=== PATIENT | male | born 1955 | race Caucasian/White ===

== ENCOUNTER → 2022-08-09 07:45 | Outpatient (CLI) | payer MEDICARE, SELFPAY ==
--- NOTE | ~2022-08-09 | US_ITS ---
EXAMINATION: US abdomen limited DATE: 08/09/2022 08:11 INDICATION: Right upper quadrant pain TECHNIQUE: Multiple grayscale and Doppler ultrasound images of the abdomen were obtained. COMPARISON: None available FINDINGS: The head and body of the pancreas are normal. The pancreatic tail is obscured by bowel gas. The liver demonstrates increased echogenicity, heterogenous echotexture, and decreased through trans mission. No surface nodularity. Normal hepatopetal flow in the main portal vein. The gallbladder is n ormal with no abnormal wall thickening, pericholecystic fluid or stones. The normal common bile duct measures 5 mm. There was no sonographic Moe sign. IMPRESSION: 1. Diffuse hepatic steatosis. Reviewed, dictated and finalized at location []
== END ==
PROVIDERS: PCP Physician Assistant; Visit Provider Physician Assistant
DX: R10.11 Right upper quadrant pain (principal); K76.0 Fatty (change of) liver, not elsewhere classified
CPT/HCPCS: 76705

== ENCOUNTER 2022-10-29 10:06 | Outpatient (CLI) | payer MEDICARE, SELFPAY ==
[2022-10-29 19:19] LABS: Alanine Aminotransferase 68 U/L (6-50); Albumin Level 4.3 g/dL (3.5-5.1); Alkaline Phosphatase 83 U/L (38-126); Anion Gap 7 mmol/L (8-16); Aspartate Amino Transferase 49 U/L (17-59); Bilirubin,Total 0.6 mg/dL (0.2-1.3); Blood Urea Nitrogen 20 mg/dL (9-20); Calcium 9.4 mg/dL (8.4-10.2); Carbon Dioxide 33 mmol/L (22-30); Chloride 100 mmol/L (98-107); Cholesterol 211 mg/dL (0-200); Estimated Glomerular Filt Rate 50; Glucose 98 mg/dL (65-110); HDL Direct 34 mg/dL; Potassium 3.8 mmol/L (3.4-5.0); Sodium 140 mmol/L (137-145); Triglycerides 196 mg/dL (<150)
[2022-10-29 19:30] LABS: LDL Cholesterol Direct 133 mg/dL
[2022-10-29 20:15] LABS: Hepatitis C Virus Antibody Negative (Negative)
[2022-10-29 20:27] LABS: Hemoglobin A1C 4.9 % (<5.7)
[2022-11-02 17:25] LABS: Prostate Specific Antigen 5.7 ng/mL (< OR = 4.0)
== END 2022-10-29 10:07 | disposition home or self-care (01) ==
PROVIDERS: PCP Physician Assistant; Visit Provider Emergency Medicine
DX: R73.01 Impaired fasting glucose (principal); E78.5 Hyperlipidemia, unspecified; Z11.59 Encounter for screening for other viral diseases; Z12.5 Encounter for screening for malignant neoplasm of prostate
CPT/HCPCS: 36415; 80053; 80061; 83036; 84153; 86803; G0103

== ENCOUNTER 2022-11-15 09:21 | Outpatient (CLI) | payer MEDICARE, SELFPAY ==
--- NOTE | ~2022-11-15 | NM_ITS ---
EXAMINATION: NM hepatobiliary wo pharm DATE: 11/15/2022 12:26 INDICATION: Right upper quadrant abdominal pain. COMPARISON: Ultrasound 08/09/2022 TECHNIQUE: 5 mCi Tc-99m mebrofenin (Choletec) was administered intravenously. Scintigraphic images o f the abdomen were obtained for one hour. Then, the patient drank 8 oz Ensure, and imaging was contin ued for 60 minutes. FINDINGS: There is normal clearance of radiotracer from the blood pool. There is homogeneous tracer u ptake by the liver. Activity progresses to the bowel and gallbladder. Gallbladder ejection fraction (GBEF) was 42%. Note that with this technique, normal GBEF >= 33%. IMPRESSION: 1. Normal hepatobiliary scintigraphy. Reviewed, dictated and finalized at location E.
== END 2022-11-15 09:22 | disposition home or self-care (01) ==
PROVIDERS: PCP Emergency Medicine; Visit Provider Physician Assistant
DX: R10.11 Right upper quadrant pain (principal)
CPT/HCPCS: 78226; A9537

== ENCOUNTER 2022-11-18 06:51 | Outpatient (CLI) | payer MEDICARE, SELFPAY ==
--- NOTE | ~2022-11-18 | CT_ITS ---
. EXAMINATION: CT abdomen pelvis w con DATE: 11/18/2022 07:16 INDICATION: Right upper quadrant abdominal pain TECHNIQUE: Computed tomography (CT) of the abdomen and pelvis was performed with 100 CC Omnipaque 350 intravenous contrast. Automated exposure control and iterative reconstruction technique were employe d. Exam dose: 1551.48 mGy-cm total exam DLP. COMPARISON: 11/15/2022 radionuclide hepatobiliary scan, reported normal 08/09/2022 Limited abdominal ultrasound examination FINDINGS: The lung bases are clear. Normal heart size. No pericardial or pleural effusion. Diffuse hepatic steatosis. No hepatic space-occupying mass lesion. No bile duct dilatation. No pancre atic mass lesion, calcification or ductal dilatation. Normal splenic size. Normal morphology of the adrenal glands. Irregularity right renal outline likely due to chronic pyelonephritis. There are multiple right renal calculi including staghorn calculus at the upper pole and multiple additional mid and lower pole rig ht renal calculi. There is severe left hydronephrosis with prominent thinning of the cortex of the left kidney. There i s an obstructing approximately 11 x 17 mm calculus with attenuation of 1385 Hounsfield units at the l eft ureteropelvic junction. Approximately 4 additional nonobstructing left renal calculi. There is considerable streak artifact from bilateral total hip replacements which obscure portions of the pelvis including particularly the urinary bladder and prostate gland. There is extensive atherosclerotic calcification but normal caliber of the abdominal aorta and iliac arteries and femoral arteries. No intraperitoneal or retroperitoneal or pelvic mass lesion or adenopathy or ascites. No evidence of appendicitis. No bowel obstruction, bowel wall thickening, pneumatosis or intraperiton eal free air. Left fat-containing inguinal hernia. Small fat-containing umbilical hernia. Diffuse idiopathic skeletal hyperostosis of the thoracolumbar spine. Status post posterior and interbody surgical fusion at L4-S1. Status post bilateral total hip arthroplasty. IMPRESSION: Nonobstructing 11 x 17 mm left ureteropelvic junction calculus with severe left hydronep hrosis and prominent thinning of the left renal cortex Extensive bilateral nephrolithiasis Chronic right pyelonephritis Hepatic steatosis Reviewed, dictated and finalized at Location A. Reviewed, dictated and finalized at location L. IMPRESSION: Nonobstructing 11 x 17 mm left ureteropelvic junction calculus wit h severe left hydronephrosis and prominent thinning of the left renal cortex Extensive bilateral nephrolithiasis Chronic right pyelonephritis Hepatic steatosis
== END 2022-11-18 06:52 | disposition home or self-care (01) ==
LOC: ANHIMG 06:53
PROVIDERS: PCP Emergency Medicine; Visit Provider Physician Assistant
DX: N20.0 Calculus of kidney (principal); N10 Acute pyelonephritis; K76.0 Fatty (change of) liver, not elsewhere classified; N13.30 Unspecified hydronephrosis
CPT/HCPCS: 74177; Q9967

== ENCOUNTER 2022-11-30 00:44 | Day surgery (SDC) | payer MEDICARE, SELFPAY ==
[2022-11-18 12:42] VITALS: BMI 34.9
[2022-11-30 11:53] VITALS: BP 153/84; PULSE 68; RESP 17; TEMP 35.9; O2SAT 97; BMI 34.7
[2022-11-30] MEDS: LACTATED RINGERS 1,000 ML 150 ML IV CONT (12:03)
--- NOTE | 2022-11-30 12:38 | WPDANESEPPF ---
Anes - Initial Pre Proc Eval Procedure: Operation Date: 11/30/22 13:15 Proposed Procedures p Screening Colonoscopy - Christian Doe MD Date/Time: 11/30/22 12:38 Surgeon: Christian Doe MD Pre Op Diagnosis: neoplasm screening Patient Data Age: 66 Gender: M Height: 1.8 m Weight: 113 kg Last Vital Signs Temp 96.6 F L 11/30/22 11:53 Pulse 68 11/30/22 11:53 Resp 17 11/30/22 11:53 BP 153/84 H 11/30/22 11:53 Pulse Ox 97 11/30/22 11:53 O2 Del Method Room Air 11/30/22 11:53 Allergies Allergy/AdvReac Type Severity Reaction Status Date / Time No Known Allergies Allergy Unknown Verified 11/30/22 11:51 Home Medications Medication Instructions Recorded Confirmed Type tramadol 50 mg tablet 50 mg PO .q4 PRN pain #60 tabs 08/25/21 11/30/22 Rx krill oil 500 mg capsule 500 mg PO DAILY 12/01/21 11/30/22 History oypniefgushg-jdz-fhzxq acid-vit 1 tablet PO DAILY 12/01/21 11/30/22 History K-lycop 400 mcg-20 mcg-370 mcg tablet (Men's 50 Plus Multivitamin) allopurinol 300 mg tablet 300 mg PO DAILY #90 tabs 09/27/22 11/30/22 Rx amlodipine 10 mg tablet 10 mg PO DAILY 11/18/22 11/30/22 History aspirin 325 mg tablet 325 mg PO DAILY 11/18/22 11/30/22 History duloxetine 30 mg capsule,delayed 30 mg PO DAILY 11/18/22 11/30/22 History release metoprolol succinate 25 mg 25 mg PO DAILY 11/18/22 11/30/22 History tablet,extended release 24 hr triamterene 37.5 1 tablet PO DAILY 11/18/22 11/30/22 History mg-hydrochlorothiazide 25 mg tablet Patient hx anesthesia problems: none Family hx anesthesia problems: none Results Review: All pre-operative results and documents have been reviewed as part of the pre-operative evaluation. [facility] Past Medical History Medical History Obstructive sleep apnea (adult) (pediatric) Surgical History Surgical History H/O arthroscopy of knee H/O hernia repair H/O lumbosacral spine surgery History of appendectomy History of hip replacement S/P hip arthroscopy Family History Family History Mother Family history of cardiovascular disease Father Family history of malignant neoplasm of urinary bladder, Onset Age: 78 Social History Social History (Updated 10/29/22 @ 09:06 by Joe Vergara MA) Smoking status: Never smoker Alcohol intake: never Substance use type: does not use Lack of Transportation: No Lack of Food: Never True Current Housing: I Have Housing Concerned About Future Housing: No Difficulty Paying Gas/Electric Bills: No Difficulty Paying for Meds: No Currently Unemployed: No Education: Trade/Vocational Certificate Difficulty w/ Childcare or Family Care: No Living arrangements: with family Occupation/Education: retired Gender identity (if verbalized by the patient): Male Spiritual care concerns: No Agree to blood products: Yes Anes - Eval Final PreProcedure Day of Procedure 11/30/22 12:38 Patient weight: obese Heart: regular rate and rhythm Lungs: clear to auscultation Airway: Mallampati scale class II Neurological: alert and oriented Last oral intake: >/= 8 hours ASA classification: III Emergent: no Anesthetic plan: proceed Anesthesia type and monitoring: general GIVS and standard monitoring Results Review: All pre-operative results and documents have been reviewed as part of the pre-operative evaluation. Informed Consent: The patient's anesthetic plan and its attendant risks and benefits were discussed with the patient/family/POA. Questions were solicited and answers provided to the satisfaction of the patient/family/POA.
--- NOTE | 2022-11-30 12:57 | PM.HPGS ---
History of Present Illness History of Present Illness Consent: Risks, benefits, and alternatives have been discussed and questions answered. Patient agrees to proceed with procedure. Chief complaint: neoplasm screening Narrative: Leonel Magdaleno is a 66 year old male here for first screening colonoscopy Review of Systems Constitutional: Constitutional: Denies headache(s) and Denies weakness Eyes: Eyes: Denies blurry vision ENT: Reports Normal hearing present, Denies headache(s) and Denies neck pain Cardiovascular: Cardiovascular: Denies chest pain and Denies dyspnea Respiratory: Respiratory: Denies dyspnea Gastrointestinal: Gastrointestinal: Reports no additional gastrointestinal complaints Genitourinary: Genitourinary: Denies dysuria Musculoskeletal: Musculoskeletal: Denies neck pain Integumentary/Breasts: Skin/Breast: Denies dry skin Neurologic: Reports Normal hearing present, Denies headache(s) and Denies weakness Psychiatric: Psychiatric: Denies anxiety Endocrine: Endocrine: Denies change in body appearance Hematologic/Lymphatic: Hematologic/Lymphatic: Denies easy bleeding Allergic/Immunologic: Allergic/Immunologic: Denies urticaria PMFSH Past Medical History Medical History Obstructive sleep apnea (adult) (pediatric) Surgical History Surgical History H/O arthroscopy of knee H/O hernia repair H/O lumbosacral spine surgery History of appendectomy History of hip replacement S/P hip arthroscopy Family History Family History Mother Family history of cardiovascular disease Father Family history of malignant neoplasm of urinary bladder, Onset Age: 78 Social History Social History (Updated 10/29/22 @ 09:06 by Joe Vergara MA) Smoking status: Never smoker Alcohol intake: never Substance use type: does not use Lack of Transportation: No Lack of Food: Never True Current Housing: I Have Housing Concerned About Future Housing: No Difficulty Paying Gas/Electric Bills: No Difficulty Paying for Meds: No Currently Unemployed: No Education: Trade/Vocational Certificate Difficulty w/ Childcare or Family Care: No Living arrangements: with family Occupation/Education: retired Gender identity (if verbalized by the patient): Male Spiritual care concerns: No Agree to blood products: Yes Meds Home Medications and Allergies Home Medications Medication Instructions Recorded Confirmed Type tramadol 50 mg tablet 50 mg PO .q4 PRN pain #60 tabs 08/25/21 11/30/22 Rx krill oil 500 mg capsule 500 mg PO DAILY 12/01/21 11/30/22 History mjrwdbbpwlyy-dzk-umxzn acid-vit 1 tablet PO DAILY 12/01/21 11/30/22 History K-lycop 400 mcg-20 mcg-370 mcg tablet (Men's 50 Plus Multivitamin) allopurinol 300 mg tablet 300 mg PO DAILY #90 tabs 09/27/22 11/30/22 Rx amlodipine 10 mg tablet 10 mg PO DAILY 11/18/22 11/30/22 History aspirin 325 mg tablet 325 mg PO DAILY 11/18/22 11/30/22 History duloxetine 30 mg capsule,delayed 30 mg PO DAILY 11/18/22 11/30/22 History release metoprolol succinate 25 mg 25 mg PO DAILY 11/18/22 11/30/22 History tablet,extended release 24 hr triamterene 37.5 1 tablet PO DAILY 11/18/22 11/30/22 History mg-hydrochlorothiazide 25 mg tablet Allergies Allergy/AdvReac Type Severity Reaction Status Date / Time No Known Allergies Allergy Unknown Verified 11/30/22 11:51 Vital Signs Vital Signs - 24 hr 11/30/22 11:53 Temperature 96.6 F L Pulse Rate 68 Respiratory Rate 17 Blood Pressure 153/84 H Pulse Oximetry 97 Oxygen Delivery Room Air Exam Const: General: comfortable and no acute distress HENMT: Face/Nose/Sinus: Normal nares present Eyes: General: appearance normal, both eyes and all related structures Neck: Neck: no JVD Resp:
[2022-11-30 13:19] VITALS: BP 106/66; PULSE 67; RESP 17; O2SAT 95
[2022-11-30 13:29] VITALS: BP 106/67; PULSE 68; RESP 16; O2SAT 95
[2022-11-30 13:39] VITALS: BP 117/76; PULSE 68; RESP 16; O2SAT 95
== END 2022-11-30 13:40 | disposition home or self-care (01) ==
PROVIDERS: PCP Emergency Medicine; Visit Provider Internal Medicine Gastroenterology
PROC: 0DJD8ZZ Inspection of Lower Intestinal Tract, Via Natural or Artificial Opening Endoscopic (ICD-10-PCS; CPT 45378; principal; 2022-11-30 13:15)
DX: Z12.11 Encounter for screening for malignant neoplasm of colon (principal); D12.3 Benign neoplasm of transverse colon; D12.0 Benign neoplasm of cecum; K63.5 Polyp of colon; K64.8 Other hemorrhoids; G47.33 Obstructive sleep apnea (adult) (pediatric); Z79.82 Long term (current) use of aspirin; E66.9 Obesity, unspecified; Z68.34 Body mass index [BMI] 34.0-34.9, adult
CPT/HCPCS: 45385; 45380; 88305; J2704; J7120

== ENCOUNTER 2022-12-24 09:18 | Outpatient (CLI) | payer MEDICARE, SELFPAY ==
--- NOTE | 2022-12-24 09:26 | ECG_ITS ---
Measurements Intervals [place] Rate: 60 P: 53 NE: 215 QRS: -1 QRSD: 98 T: 2 QT: 426 QTc: 427 Interpretive Statements SINUS RHYTHM WITH FIRST DEGREE AV BLOCK INFERIOR INFARCT, AGE INDETERMINATE BORDERLINE ST-T WAVE ABNORMALITY- ANTEROLAT/HIGH LAT LEADS BASELINE ARTIFACT- I, III, AVL ABNORMAL ECG NO PREVIOUS ECG AVAILABLE FOR COMPARISON Electronically Signed On 12-24-2022 10:52:00 REPLENISHMENT BUYER by Epi Duff D.O.
== END 2022-12-24 09:19 | disposition home or self-care (01) ==
LOC: ANHSURGERY 09:22
PROVIDERS: PCP Emergency Medicine; Visit Provider Urology
DX: Z01.818 Encounter for other preprocedural examination (principal); I10 Essential (primary) hypertension; I44.0 Atrioventricular block, first degree; R94.31 Abnormal electrocardiogram [ECG] [EKG]
CPT/HCPCS: 93005

== ENCOUNTER 2022-12-28 01:49 | Day surgery (SDC) | payer MEDICARE, SELFPAY ==
--- NOTE | 2022-12-23 13:44 | PC.NURSE ---
Report to the Outpatient Waiting Room, entrance under the green pavilion located off [facility], at time __1200 on date ____12/28/22___. Planned Procedure Time: _1400 . Time changes happen often and if your time is changed the preop area will call you the afternoon before. - You and your visitor will be asked to self-screen and do not enter if you have any COVID symptoms. - A mask is optional within the hospital at this time. Patients may have clear liquids (water, carbonated beverages, clear teas, apple juice) until 3 hours prior to surgery with a maximum of 20 ounces. - No food from midnight until time of surgery - Infants may have breast milk until 4 hours before surgery, formula 6 hours prior to surgery. - Children will be allowed to drink immediately following surgery. If applicable, please bring a bottle or sippy cup to assist with drinking. Juice, water, soda, and popsicles are readily available. For infants on formula, please bring formula the day of surgery. Pacifiers are allowed. Take the following medications with a SIP of water the morning of surgery: __AMLODIPINE,METOPROLOL DO NOT STOP ANY OF YOUR OTHER PRESCRIPTION MEDICATIONS PRIOR TO SURGERY ?EXCEPT THE FOLLOWING Medications to discontinue per physician ____PT STATES HOLD ASPIRIN AND ALL VITAMINS AND SUPPLEMENTS 7 DAYS PRE OP PER DR DELGAOD.LAST DOSE 12/20/22 Please no make-up, nail iraqi, hairspray, perfume, deodorant, or body powder the day of surgery. No jewelry (including any body piercings) or valuables the day of surgery, leave them at home. Please take a shower or bath the night before, or the morning of, surgery with an antibacterial soap. Wear comfortable, loose fitting clothing. Children are encouraged to wear pajamas. - Jewelry must be removed prior to entering the operating room. Rings and piercings that are not removed may be cut off. - The hospital will not accept responsibility for valuables. - Please leave all valuables, including medications, at home the day of surgery. If you are going home after surgery, a licensed vacuum truck driver must drive you home. - NO public transportation without another adult if you receive anesthesia. - We recommend that an adult stay with you for 24 hours following discharge. - We also recommend that you do not drive, make important decision, drink alcoholic beverages, or take any drugs that were not prescribed by your health care provider for at least 24 hours after your discharge time. For Pediatric surgeries, we recommend two adults accompany the child home. Follow any additional instructions given to you from your surgeon. If you or anyone in your household have experienced Covid symptoms in the past week, please notify your surgeon or the nurse liaison at the phone number below for possible testing. Telephone instructions given to _PATIENT and asked if any additional questions and then verbalized understanding. Patient advised to call surgeon office or pre surgery nurse liaison [phone] if any additional questions.
[2022-12-23 13:52] VITALS: BMI 34.9
[2022-12-28] VITALS (8 sets, daily range): BP systolic 117–152; BP diastolic 63–84; PULSE 65–78; RESP 12–18; TEMP 36.2–36.7; O2SAT 97–100
--- NOTE | ~2022-12-28 | XR_ITS ---
XR abdomen/kub 1V DATE: 12/28/2022 13:21 INDICATION: Obstructing left kidney stone TECHNIQUE: 3 portable AP views COMPARISON: 11/18/2022 CT abdomen pelvis FINDINGS: Approximately 9 x 16 mm calcified calculus overlies the left ureteropelvic junction approxi mately. Bilateral renal calcified calculi including staghorn calculus of the upper pole of the right kidney. Status post posterior and interbody surgical fusion at L4-S1. Status post bilateral total hip arthroplasty. No evidence of bowel obstruction. The lung bases appear clear. IMPRESSION: Large left ureteropelvic junction calcified calculus Bilateral nephrolithiasis Reviewed, dictated and finalized at Location A. Reviewed, dictated and finalized at location L. SPRAYER
--- NOTE | ~2022-12-28 | XR_ITS ---
EXAMINATION: XR retrograde pyelo w/stent LT DATE: 12/28/2022 15:44 INDICATION: Left ureteral stone. TECHNIQUE: 5 intraoperative fluoroscopic views of the abdomen and pelvis were obtained. I was not pre sent. Fluoroscopy exposure time was 38 seconds. COMPARISON: CT abdomen and pelvis 11/18/2022 FINDINGS: There are changes of anterior posterior fusion procedures in lumbar spine. There is a 16 mm stone in proximal left ureter. There is a 7 mm stone in left kidney. There is a phlebolith in left p jourdan. On the final images, the left ureteral stone is no longer present. There is a left internal ur eteral stent in expected position. IMPRESSION: 1. Stones in the left ureter and left kidney. 2. Left internal ureteral stent in expected position. Reviewed, dictated and finalized at location A. KROOM CHIEF
[2022-12-28] MEDS: LACTATED RINGERS 1,000 ML 30 ML IV CONT ×2 (12:45→15:46)
--- NOTE | 2022-12-28 12:57 | WPDHPUPDATE1 ---
History and Physical Update Update Date/Time: 12/28/22 12:57 History and Physical has been reviewed, including an updated exam of the patient. There are NO changes in the patient's condition. Risks, benefits, and alternatives have been discussed and questions answered. Patient agrees to proceed with procedure. Proceed with cysto, left rpg, left ureteroscopy, laser, stone extraction, stent placement, possible right rpg, ureteroscopy, stent.
--- NOTE | 2022-12-28 13:13 | WPDANESEPPF ---
Anes - Initial Pre Proc Eval Procedure: Operation Date: 12/28/22 14:00 Proposed Procedures p Cystoscopy, Left Ureteroscopy, Left Retrograde Pyelogram, Left Stone Extraction, Possible Left Stent Placement, Possible Holmium Laser - Yao Meehan MD Date/Time: 12/28/22 13:13 Surgeon: Yao Meehan MD Pre Op Diagnosis: left kidney stones Patient Data Age: 67 Gender: M Height: 1.8 m Weight: 113.45 kg Allergies Allergy/AdvReac Type Severity Reaction Status Date / Time No Known Allergies Allergy Unknown Verified 12/23/22 13:34 Home Medications Medication Instructions Recorded Confirmed Type krill oil 500 mg capsule 500 mg PO DAILY 12/01/21 12/23/22 History ggokajyvtqty-rtv-mwkke acid-vit 1 tablet PO DAILY 12/01/21 12/23/22 History K-lycop 400 mcg-20 mcg-370 mcg tablet (Men's 50 Plus Multivitamin) allopurinol 300 mg tablet 300 mg PO DAILY #90 tabs 09/27/22 12/23/22 Rx amlodipine 10 mg tablet 10 mg PO DAILY 11/18/22 12/23/22 History aspirin 325 mg tablet 325 mg PO DAILY 11/18/22 12/23/22 History duloxetine 30 mg capsule,delayed 30 mg PO QPM NEUROPATHY 11/18/22 12/23/22 History release metoprolol succinate 25 mg 25 mg PO DAILY 11/18/22 12/23/22 History tablet,extended release 24 hr triamterene 37.5 1 tablet PO DAILY 11/18/22 12/23/22 History mg-hydrochlorothiazide 25 mg tablet tramadol 50 mg tablet 50 mg PO .q4 PRN pain #60 tabs 12/23/22 12/23/22 Rx Patient hx anesthesia problems: none Family hx anesthesia problems: none Results Review: All pre-operative results and documents have been reviewed as part of the pre-operative evaluation. [facility] Past Medical History Medical History Obstructive sleep apnea (adult) (pediatric) Surgical History Surgical History H/O arthroscopy of knee H/O hernia repair H/O lumbosacral spine surgery History of appendectomy History of hip replacement S/P hip arthroscopy Family History Family History Mother Family history of cardiovascular disease Father Family history of malignant neoplasm of urinary bladder, Onset Age: 78 Social History Social History Smoking status: Never smoker Alcohol intake: never Substance use type: does not use Lack of Transportation: No Lack of Food: Never True Current Housing: I Have Housing Concerned About Future Housing: No Difficulty Paying Gas/Electric Bills: No Difficulty Paying for Meds: No Currently Unemployed: No Education: Trade/Vocational Certificate Difficulty w/ Childcare or Family Care: No Living arrangements: with family Occupation/Education: retired Gender identity (if verbalized by the patient): Male Spiritual care concerns: No Agree to blood products: Yes Anes - Eval Final PreProcedure Day of Procedure 12/28/22 13:13 Patient weight: obese Heart: regular rate and rhythm Lungs: clear to auscultation Airway: Mallampati scale class II Neurological: alert and oriented Last oral intake: >/= 8 hours ASA classification: III Emergent: no Anesthetic plan: proceed Anesthesia type and monitoring: general LMA Results Review: All pre-operative results and documents have been reviewed as part of the pre-operative evaluation. Informed Consent: The patient's anesthetic plan and its attendant risks and benefits were discussed with the patient/family/POA. Questions were solicited and answers provided to the satisfaction of the patient/family/POA.
[2022-12-28] MEDS: LIDOCAINE HCL 2% GEL UROJET 10 ML PKG MUCOUS MEM (14:39)
--- NOTE | 2022-12-28 15:42 | P.OP_ITS ---
Procedure Note - Detailed Date of Procedure 12/28/22 Pre-op Diagnosis 17 mm left UPJ stone with hydronephrosis, right staghorn stone Post-op Diagnosis Same Procedure Performed Cystoscopy, bilateral retrograde pyelograms, left ureteroscopy with holmium laser, left ureteral stent placement 6 [place] contour Surgeon Yao Meehan MD Anesthesia General Description of Procedure Patient was taken to the operative suite correctly identified. Once anesthesia was obtained was placed in dorsal lithotomy position and prepped draped usual sterile fashion. Twenty-two [place] scope was inserted the bladder in direct vision. There were no tumors noted. The left ureteral orifice was cannulated with a ureteral catheter and a pyelogram was performed. Contrast made its way into the kidney. A Sensor wire would not advance past the stone. At this point we placed a ureteral access sheath. Mini flexible ureteral scope was inserted up to the stone. It is very large and obstructs the entire ureter. Using a holmium laser fiber we fragmented the stone into smaller pieces along with dust. We were able to finally get into the kidney. There were some fragments noted in the kidney which we dusted. Patient was having a little bit of ectopy and this was decided best to terminate at this point. Pyelogram was performed again to confirm placement the stent. Six [place] contour stent was then placed with the proximal end coiled in the left renal pelvis and the distal in the bladder. A right retrograde pyelogram was then performed there was no evidence of obstruction or ureteral filling defects. Bladder was drained. 2% viscous lidocaine was inserted into the urethra patient is taken recovery stable condition. We will plan on outpatient renal scan to determine function of the left kidney. In addition will make a decision regarding lithotripsy of the right renal stone with stent placement versus PCNL versus ureteroscopy with laser. This completes dictation on this patient. Please send a copy this op note to my office. Estimated Blood Loss 0 Drains Yes (Six [place] contour) Packing No Pathology Yes Complications No immediate complications Condition Stable Disposition PACU
== END 2022-12-28 17:15 | disposition home or self-care (01) ==
PROVIDERS: PCP Emergency Medicine; Visit Provider Urology
PROC: (CPT 52352; principal; 2022-12-28 14:00)
DX: N13.2 Hydronephrosis with renal and ureteral calculous obstruction (principal); G47.33 Obstructive sleep apnea (adult) (pediatric); Z79.82 Long term (current) use of aspirin; E66.9 Obesity, unspecified; Z68.34 Body mass index [BMI] 34.0-34.9, adult
CPT/HCPCS: 52356; 74018; 74420; 82365; 88300; 93005; C1758; C1769; C1894; C2617; J0690; J1100; J2250; J2405; J2704; J3010; J7120; Q9966

== ENCOUNTER 2023-01-20 11:51 | Outpatient (CLI) | payer MEDICARE, SELFPAY ==
--- NOTE | ~2023-01-20 | NM_ITS ---
EXAMINATION: FRANCESCO cramer renal scan DATE: 01/20/2023 12:58 INDICATION: Hydronephrosis TECHNIQUE: 8.6 mCi Tc-99m MAG3 was administered IV. 40 mg furosemide was administered IV immediately afterward. The patient was scanned in the supine position. A posterior abdominal radionuclide angiog pari was obtained. A subsequent time course of static images of the kidneys, ureters, and bladder was obtained. COMPARISON: None FINDINGS: The posterior abdominal radionuclide angiogram and sequential static images show normal size and posi tion of the kidneys with normal morphology on the right and with prominent central photopenic on the early phase of imaging of the left kidney which gradually fills in on delayed imaging consistent with persistent left hydronephrosis. Peak renal parenchymal uptake was 3 min in left kidney and 12 min in right kidney (normal peak 3-5 minutes). The relative early renal uptake was 28% on the left and 72% on the right (<40% is abnormal). No abnormalities of the ureters or bladder are seen. T1/2 for clearance of activity from the left kidney and proximal collecting system was >30 minutes. T1/2 for clearance of activity from the right kidney and proximal collecting system was 15 minutes. Notes on interpretation: T1/2 <10 minutes is normal, 10-15 minutes is low grade obstruction of questi onable clinical significance, 15-20 minutes is partial obstruction that is likely clinically signific ant, >20 minutes is high grade obstruction. Note that false positives may be seen with supine positio jose cruz, dehydration, severely dilated nonobstructed kidney, atonic collecting system, poor renal functi on, and chronic furosemide use. IMPRESSION: 1. Left hydronephrosis with significant delayed activity excretion consistent with high-grade obstru ction. 2. Significant decreased left renal function which contributes only 28% total renal function which li jerry sequela of chronic hydronephrosis with asymmetric mild left renal cortical atrophy evident on e CT from 2 months prior. 2. Mild delayed activity clearance from the right kidney which could be due to low-grade obstruction of doubtful clinical significance however there is no evident hydronephrosis and this more likely re lated to either poor renal function, compensatory excretion resulting from the contralateral hydronep hrosis, supine positioning, dehydration or some combination thereof. Reviewed, dictated and finalized at location A. CTOR PROCESS IMPROVEMENT IMPRESSION: 1. Left hydronephrosis with significant delayed activity excretion consistent with high-grade obstruction. 2. Significant decreased left renal function which contributes only 28% total r enal function which likely sequela of chronic hydronephrosis with asymmetric mi ld left renal cortical atrophy evident on the CT from 2 months prior. 2. Mild delayed activity clearance from the right kidney which could be due to low-grade obstruction of doubtful clinical significance however there is no ev ident hydronephrosis and this more likely related to either poor renal function , compensatory excretion resulting from the contralateral hydronephrosis, supin e positioning, dehydration or some combination thereof.
--- NOTE | ~2023-01-20 | XR_ITS ---
XR abdomen/kub 1V 01/20/2023 12:58 INDICATION: Renal stone TECHNIQUE: KUB COMPARISON: 12/28/2022 FINDINGS: Bowel gas pattern is normal. There are multiple bilateral renal stones. There is a left int ernal ureteral stent in expected position. There are bilateral hip arthroplasties. There is no eviden ce of free air, mass, organomegaly, ascites or obstruction. No abnormal calculi are seen. The bones appear intact. There is surgical fusion at L4 S1. IMPRESSION: 1: Bilateral nephrolithiasis. Left internal ureteral stent in expected position. Reviewed, dictated and finalized at location L. MACHINERY INSPECTOR IMPRESSION: 1: Bilateral nephrolithiasis. Left internal ureteral stent in expected positio n.
== END 2023-01-20 11:52 | disposition home or self-care (01) ==
PROVIDERS: PCP Emergency Medicine; Visit Provider Urology
DX: N13.30 Unspecified hydronephrosis (principal); N20.0 Calculus of kidney; R94.4 Abnormal results of kidney function studies
CPT/HCPCS: 74018; 78708; A9562

== ENCOUNTER 2023-02-09 12:04 | Outpatient (CLI) | payer MEDICARE, SELFPAY ==
[2023-02-09 12:56] LABS: Prothrombin Time 13.2 Seconds (11.1-14.7)
[2023-02-09 12:57] LABS: Partial Thromboplastin Time 25.7 SECONDS (22.3-36.8)
[2023-02-09 13:07] LABS: Anion Gap 8 mmol/L (8-16); Blood Urea Nitrogen 18 mg/dL (9-20); Calcium 9.2 mg/dL (8.4-10.2); Carbon Dioxide 30 mmol/L (22-30); Chloride 104 mmol/L (98-107); Estimated Glomerular Filt Rate 60; Glucose 129 mg/dL (65-110); Potassium 3.5 mmol/L (3.4-5.0); Sodium 142 mmol/L (137-145)
== END 2023-02-09 12:05 | disposition home or self-care (01) ==
LOC: ANHSURGERY 12:09
PROVIDERS: Anesthesiology; PCP Emergency Medicine; Visit Provider Urology
DX: Z01.818 Encounter for other preprocedural examination (principal); I10 Essential (primary) hypertension; N20.0 Calculus of kidney
CPT/HCPCS: 36415; 80048; 85610; 85730; 87086

== ENCOUNTER 2023-02-18 00:30 | Day surgery (SDC) | payer MEDICARE, SELFPAY ==
--- NOTE | 2023-02-08 08:42 | PC.NURSE ---
Report to the Outpatient Waiting Room, entrance under the green pavilion located off [facility], at time __0600 on date __02/18/23 . Planned Procedure Time: __0730 . Time changes happen often and if your time is changed the preop area will call you the afternoon before. - You and your visitor will be asked to self-screen and do not enter if you have any COVID symptoms. - A mask is optional within the hospital at this time. Patients may have clear liquids (water, carbonated beverages, clear teas, apple juice) until 3 hours prior to surgery( 4:30AM) with a maximum of 20 ounces. - No food from midnight until time of surgery - Infants may have breast milk until 4 hours before surgery, formula 6 hours prior to surgery. - Children will be allowed to drink immediately following surgery. If applicable, please bring a bottle or sippy cup to assist with drinking. Juice, water, soda, and popsicles are readily available. For infants on formula, please bring formula the day of surgery. Pacifiers are allowed. Take the following medications with a SIP of water the morning of surgery: ___AMLODIPINE,METOPROLOL DO NOT STOP ANY OF YOUR OTHER PRESCRIPTION MEDICATIONS PRIOR TO SURGERY ?EXCEPT THE FOLLOWING Medications to discontinue per physician ___HOLD ASPIRIN 7 DAYS PRE OP PER DR DELGADO.LAST DOSE 02/10/23 HOLD ALL VITAMINS AND SUPPLEMENTS 3 DAYS PRE OP.LAST DOSE 02/14/23 Please no make-up, nail khmer, hairspray, perfume, deodorant, or body powder the day of surgery. No jewelry (including any body piercings) or valuables the day of surgery, leave them at home. Please take a shower or bath the night before, or the morning of, surgery with an antibacterial soap. Wear comfortable, loose fitting clothing. Children are encouraged to wear pajamas. - Jewelry must be removed prior to entering the operating room. Rings and piercings that are not removed may be cut off. - The hospital will not accept responsibility for valuables. - Please leave all valuables, including medications, at home the day of surgery. If you are going home after surgery, a licensed tractor driver teamster must drive you home. - NO public transportation without another adult if you receive anesthesia. - We recommend that an adult stay with you for 24 hours following discharge. - We also recommend that you do not drive, make important decision, drink alcoholic beverages, or take any drugs that were not prescribed by your health care provider for at least 24 hours after your discharge time. For Pediatric surgeries, we recommend two adults accompany the child home. Follow any additional instructions given to you from your surgeon. If you or anyone in your household have experienced Covid symptoms in the past week, please notify your surgeon or the nurse liaison at the phone number below for possible testing. Telephone instructions given to ___PATIENT and asked if any additional questions and then verbalized understanding. Patient advised to call surgeon office or pre surgery nurse liaison [phone] if any additional questions.
[2023-02-08 08:50] VITALS: BMI 34.9
--- NOTE | 2023-02-17 14:33 | WPDANESEPPF ---
Anes - Initial Pre Proc Eval Procedure: Operation Date: 02/18/23 07:30 Proposed Procedures p Right Renal Extracorporeal Shock Wave Lithotripsy, - Yao Meehan MD s Cystoscopy, Left Stent Removal, Right Retrograde Pyelogram, Right Stent Placement - Yao Meehan MD Date/Time: 02/17/23 14:33 Surgeon: Yao Meehan MD Pre Op Diagnosis: right renal stones, stu ureteral stents Patient Data Age: 67 Gender: M Height: 1.8 m Weight: 113.85 kg Allergies Allergy/AdvReac Type Severity Reaction Status Date / Time No Known Allergies Allergy Unknown Verified 02/18/23 07:11 Home Medications Medication Instructions Recorded Confirmed Type krill oil 500 mg capsule 500 mg PO DAILY 12/01/21 02/08/23 History yvosbtbunnrw-vtl-hgtqb acid-vit 1 tablet PO DAILY 12/01/21 02/08/23 History K-lycop 400 mcg-20 mcg-370 mcg tablet (Men's 50 Plus Multivitamin) aspirin 325 mg tablet 325 mg PO DAILY 11/18/22 02/08/23 History duloxetine 30 mg capsule,delayed 30 mg PO QPM NEUROPATHY 11/18/22 02/08/23 History release tramadol 50 mg tablet 50 mg PO .q4 PRN pain #60 tabs 12/23/22 02/08/23 Rx allopurinol 300 mg tablet 300 mg PO DAILY #100 tabs 12/30/22 02/08/23 Rx amlodipine 10 mg tablet 10 mg PO DAILY #100 tabs 12/30/22 02/08/23 Rx metoprolol succinate 25 mg 25 mg PO DAILY #100 tabs 12/30/22 02/08/23 Rx tablet,extended release 24 hr triamterene 37.5 1 tablet PO DAILY #100 tabs 12/30/22 02/08/23 Rx mg-hydrochlorothiazide 25 mg tablet Patient hx anesthesia problems: none Family hx anesthesia problems: none Results Review: All pre-operative results and documents have been reviewed as part of the pre-operative evaluation. [facility] Past Medical History Medical History Obstructive sleep apnea (adult) (pediatric) Surgical History Surgical History H/O arthroscopy of knee H/O hernia repair H/O lumbosacral spine surgery History of appendectomy History of hip replacement S/P hip arthroscopy Family History Family History Mother Family history of cardiovascular disease Father Family history of malignant neoplasm of urinary bladder, Onset Age: 78 Social History Social History Smoking status: Never smoker Alcohol intake: never Substance use type: does not use Lack of Transportation: No Lack of Food: Never True Current Housing: I Have Housing Concerned About Future Housing: No Difficulty Paying Gas/Electric Bills: No Difficulty Paying for Meds: No Currently Unemployed: No Education: Trade/Vocational Certificate Difficulty w/ Childcare or Family Care: No Living arrangements: with family Occupation/Education: retired Gender identity (if verbalized by the patient): Male Spiritual care concerns: No Agree to blood products: Yes Anes - Eval Final PreProcedure Day of Procedure 02/17/23 14:33 Patient weight: obese Heart: regular rate and rhythm Lungs: clear to auscultation Airway: Mallampati scale class III (poor dentition; all upper chips, noting loose) Neurological: alert and oriented Last oral intake: >/= 8 hours ASA classification: III Emergent: no Anesthetic plan: proceed Anesthesia type and monitoring: general LMA and standard monitoring Results Review: All pre-operative results and documents have been reviewed as part of the pre-operative evaluation. Informed Consent: The patient's anesthetic plan and its attendant risks and benefits were discussed with the patient/family/POA. Questions were solicited and answers provided to the satisfaction of the patient/family/POA.
[2023-02-18] VITALS (14 sets, daily range): BP systolic 136–181; BP diastolic 75–109; PULSE 57–91; RESP 12–18; TEMP 36.2–36.6; O2SAT 96–100
--- NOTE | ~2023-02-18 | XR_ITS ---
Supine and upright views of the abdomen Clinical history: Renal stone COMPARISON: 01/20/2023 Findings: Bowel gas pattern is nonspecific. No evidence for obstruction or free air. Multiple right r enal stones are unchanged. Left ureteral stent is in place, with stable left renal stones as well. Bi lateral hip arthroplasties and lumbosacral spinal fixation hardware present. Impression: Numerous bilateral renal stones, essentially stable from prior exam. Left ureteral stent. Reviewed, dictated and finalized at location . RATORY CHEMICAL ASSISTANT Impression: Numerous bilateral renal stones, essentially stable from prior exam. Left ureteral stent.
--- NOTE | ~2023-02-18 | XR_ITS ---
EXAMINATION: XR abdomen/kub 1V INDICATION: Abdominal pain post lithotripsy TECHNIQUE: Supine views of the abdomen were obtained on 2 radiographs. COMPARISON: 0624 hours FINDINGS: There has been interval placement of a right internal ureteral stent in expected position. There is slight interval decrease in density of a stone in the right kidney upper pole, likely due to interval lithotripsy. There appear to be stone fragments in the right renal pelvis. No definite ston e fragments are identified along the course of the right internal ureteral stent although sensitivity is limited by portable technique. A left internal ureteral stent is in expected position. Stones adj acent to the coiled portion of the stent and in the left kidney lower pole appear to have decreased i n density, also possibly due to lithotripsy. No definite stone fragments are identified along the cou rse of the left internal ureteral stent. IMPRESSION: 1. Insertion of right internal ureteral stent in expected position. 2. Apparent decrease in density of bilateral kidney stones, consistent with lithotripsy. Reviewed, dictated and finalized at location A. GING CAR OPERATOR IMPRESSION: 1. Insertion of right internal ureteral stent in expected position. 2. Apparent decrease in density of bilateral kidney stones, consistent with lit hotripsy.
[2023-02-18] MEDS: LACTATED RINGERS 1,000 ML 30 ML IV CONT ×2 (07:00→10:29)
--- NOTE | 2023-02-18 07:26 | WPDHPUPDATE1 ---
History and Physical Update Update Date/Time: 02/18/23 07:26 History and Physical has been reviewed, including an updated exam of the patient. There are NO changes in the patient's condition. Risks, benefits, and alternatives have been discussed and questions answered. Patient agrees to proceed with procedure. Proceed with right renal eswl, cystoscopy, left stent removal, right rpg, right stent placement.
[2023-02-18] MEDS: ceFAZolin 2 GM/D5W 50 ML 2 GM/50 ML BAG IVPB (07:35)
[2023-02-18] MEDS: LIDOCAINE HCL 2% GEL UROJET 10 ML PKG MUCOUS MEM (08:02)
--- NOTE | 2023-02-18 08:40 | W.PM.PROC2 ---
Procedure Note - Detailed Date of Procedure 02/18/23 Pre-op Diagnosis right renal stones, stu ureteral stents Post-op Diagnosis Same Procedure Performed Cystoscopy, right retrograde pyelogram, right renal lithotripsy Surgeon Yao Meehan MD Anesthesia General Description of Procedure Patient was taken to the operative suite correctly identified. Once anesthesia was obtained fluoroscopy was performed. It was noted that the left renal fragment was still present. As such I did not remove the left stent. For he was prepped and draped usual sterile fashion. Flexible scope was inserted into the bladder. The right ureteral orifice was cannulated with guidewire. Ureteral stent was placed after a pyelogram was performed to confirm placement. His stone is in an upper pole calyx. Two thousand five hundred shocks were given to the stone. Patient tolerated procedure well without any complications and was taken recovery stable condition. He will follow-up in 7-10 days with KUB. If there was minimal fragmentation on the right side he would most likely require a PCNL. Will make a decision regarding the left renal fragment on his follow-up KUB. This completes dictation. Please send a copy of this op note to my office. Drains Yes Packing No Pathology None sent Complications No immediate complications Condition Stable Disposition PACU
[2023-02-18] MEDS: ONDANSETRON INJ 4 MG/2 ML VIAL IV PUSH (09:35)
--- NOTE | 2023-02-18 09:44 | SUR.PHASEII ---
FEELING LIGHTED/NAUSEOUS; HOB LOWERED, COOL CLOTH TO FOREHEAD; ZOFRAN GIVEN.
[2023-02-18] MEDS: oxyBUTYnin CHLORIDE 5 MG TABLET PO (09:57)
[2023-02-18] MEDS: fentaNYL CITRATE INJ (*CRX) 100 MCG/2 ML VIAL 25 MCG IV PUSH ×8 (10:01→11:05)
--- NOTE | 2023-02-18 10:01 | SUR.PHASEII ---
PT HAS SEVERE RIGHT LOWER ABDOMINAL PAIN; PATIENT IS COMPRESSING AREA; HAS URGENCY BUT CAN'T URINATE. DR. DELGADO NOTIFIED; ORDERED DITROPAN. NAUSEA RESOLVED NOW; GIVING FENTANYL FOR PAIN.
--- NOTE | 2023-02-18 10:30 | SUR.PHASEII ---
BLADDER SCAN SHOWED [address] DELGADO NOTIFIED OF BLADDER SCAN RESULTS AND SEVERE PERSISTENT RIGHT LOWER ABDOMINAL PAIN10/24. ORDERED KUB.
--- NOTE | 2023-02-18 10:54 | SUR.PHASEII ---
PORTABLE KUB DONE.
[2023-02-18] MEDS: oxyCODONE HCL (*CRX) 5 MG TAB IR PO (11:17)
[2023-02-18] MEDS: HYDROmorphone HCL INJ (*CRX) 1 MG/ML SYR 0.5 MG IV PUSH (11:21)
--- NOTE | 2023-02-18 11:30 | SUR.PHASEII ---
RADIOLOGY CALLED RE: NIYA REPORT; THEY WILL ASK FOR IT TO BE READ.
--- NOTE | 2023-02-18 12:41 | SUR.PHASEII ---
DR. DELGADO NOTIFIED RE: PERSISTENT PAIN AND KUB RESULTS. DR. DELGADO ORDERED TO REPEAT BLADDER SCAN THAT SHOWED 350 ML. PATIENT THEN URINATED 350 BROWN-REDDISH URINE; NO CLOTS NOTED. DR. DELGADO NOTIFIED. CAME TO SEE PATIENT. GAVE PATIENT OPTION TO BE ADMITTED FOR PAIN CONTROL OR GO HOME. PATIENT OPTING TO GO HOME AFTER WAITING UNTIL FEELS MORE ALERT.
== END 2023-02-18 13:30 | disposition home or self-care (01) ==
PROVIDERS: PCP Emergency Medicine; Visit Provider Urology
PROC: (CPT 50590; principal; 2023-02-18 07:30)
PROC: (CPT 52352; 2023-02-18 07:30)
DX: N20.0 Calculus of kidney (principal)
CPT/HCPCS: 50590; 52000; 36415; 74018; 80048; 85610; 85730; 87086; A9270; C1758; C1769; C2617; J0690; J1100; J1170; J1596; J2250; J2405; J2704; J3010; J7030; J7120; Q9966

== ENCOUNTER 2023-03-02 10:28 | Outpatient (CLI) | payer MEDICARE, SELFPAY ==
--- NOTE | ~2023-03-02 | XR_ITS ---
Supine and upright views of the abdomen Clinical history: Renal stones COMPARISON: 02/18/2023 Findings: Bowel gas pattern is nonspecific. No evidence for obstruction or free air. Bilateral ureter al stents are present. There are numerous bilateral renal stones, right more so than left. Largest st one measures 1.4 cm at the right upper renal pole. There are several stones in the proximal right ure ter, largest measuring 5 mm. Probable small calcified left pelvic phleboliths. Lumbosacral spinal fix ation hardware and bilateral hip arthroplasties are present.. Impression: Bilateral nephrolithiasis, as above. Several stones in the proximal right ureter adjacent to the stent, measuring up to 5 mm. Bilateral ureteral stents. Reviewed, dictated and finalized at location . ANY PILOT Impression: Bilateral nephrolithiasis, as above. Several stones in the proximal right ureter adjacent to the stent, measuring up to 5 mm. Bilateral ureteral stents.
== END 2023-03-02 10:29 | disposition home or self-care (01) ==
PROVIDERS: PCP Emergency Medicine; Visit Provider Urology
DX: N20.2 Calculus of kidney with calculus of ureter (principal)
CPT/HCPCS: 74018

== ENCOUNTER 2023-03-15 11:18 | Outpatient (CLI) | payer MEDICARE, SELFPAY ==
[2023-03-15 12:06] LABS: INR 0.9; Prothrombin Time 12.8 Seconds (11.1-14.7)
[2023-03-15 12:07] LABS: Partial Thromboplastin Time 26.8 SECONDS (22.3-36.8)
== END 2023-03-15 11:19 | disposition home or self-care (01) ==
LOC: ANHSURGERY 11:21
PROVIDERS: PCP Emergency Medicine; Visit Provider Urology
DX: Z01.818 Encounter for other preprocedural examination (principal); N20.0 Calculus of kidney
CPT/HCPCS: 36415; 85610; 85730; 87086

== ENCOUNTER 2023-03-18 01:20 | Day surgery (SDC) | payer MEDICARE, SELFPAY ==
[2023-03-10 14:45] VITALS: BMI 35.4
--- NOTE | 2023-03-10 14:56 | PC.NURSE ---
PRE-OP INSTRUCTIONS, PLEASE READ CAREFULLY Report to the Outpatient Waiting Room, entrance under the green pavilion located off [facility], at time _0700_ on date _03/18/23_. Planned Procedure Time: _0900_. Time changes happen often and if your time is changed the preop area will call you the afternoon before. - You and your visitor will be asked to self-screen and do not enter if you have any COVID symptoms. - A mask is optional within the hospital at this time. Patients may have clear liquids (water, carbonated beverages, clear teas, apple juice) until 3 hours prior to surgery (0600 AM) with a maximum of 20 ounces. - No food from midnight until time of surgery Take the following medications with a SIP of water the morning of surgery: _AMLODIPINE, DULOXETINE, & TRAMADOL IF NEEDED_ DO NOT STOP ANY OF YOUR OTHER PRESCRIPTION MEDICATIONS PRIOR TO SURGERY ?EXCEPT THE FOLLOWING Medications to discontinue per DR. DELGADO - _ASPIRIN 7 DAYS PRIOR TO SURGERY (PER PATIENT), Date to take last dose 03/10/23_ Medications to discontinue per ANESTHESIA - _MULTIVITAMIN & SUPPLEMENTS 3 DAYS PRIOR TO SURGERY, Date to take last dose 03/14/23_ Please no make-up, nail lithuanian, hairspray, perfume, deodorant, or body powder the day of surgery. No jewelry (including any body piercings) or valuables the day of surgery, leave them at home. Please take a shower or bath the night before, or the morning of, surgery with an antibacterial soap. Wear comfortable, loose fitting clothing. - Jewelry must be removed prior to entering the operating room. Rings and piercings that are not removed may be cut off. - The hospital will not accept responsibility for valuables. - Please leave all valuables, including medications, at home the day of surgery. If you are going home after surgery, a licensed stock driver must drive you home. - NO public transportation without another adult if you receive anesthesia. - We recommend that an adult stay with you for 24 hours following discharge. - We also recommend that you do not drive, make important decision, drink alcoholic beverages, or take any drugs that were not prescribed by your health care provider for at least 24 hours after your discharge time. Follow any additional instructions given to you from your surgeon. If you or anyone in your household have experienced Covid symptoms in the past week, please notify your surgeon or the nurse liaison at the phone number below for possible testing. Telephone instructions given to _PATIENT_and asked if any additional questions and then verbalized understanding. Patient advised to call surgeon office or pre surgery nurse liaison [phone] if any additional questions.
[2023-03-18] VITALS (7 sets, daily range): BP systolic 116–145; BP diastolic 43–86; PULSE 63–71; RESP 16–18; TEMP 36.2–37.2; O2SAT 95–99
--- NOTE | ~2023-03-18 | XR_ITS ---
EXAMINATION: XR abdomen/kub 1V DATE: 03/18/2023 07:23 INDICATION: Kidney stone. TECHNIQUE: A supine view of the abdomen on 2 radiographs was obtained. COMPARISON: Abdomen radiographs 03/02/23, CT abdomen and pelvis 11/18/2022 FINDINGS: There are no dilated loops of bowel. There are greater than 20 stones in right kidney measu ring up to at least 8 mm. There are greater than 10 stones in left kidney measuring up to 6 mm. There are bilateral internal ureteral stents in expected position. There is a phlebolith in left pelvis. T here are changes of anterior and posterior fusion procedures in lumbosacral spine. There are bilatera l hip arthroplasties. IMPRESSION: 1. Bilateral kidney stones. Bilateral internal ureteral stents in expected positions. Reviewed, dictated and finalized at location A. L SERVICE SPECIALIST IMPRESSION: 1. Bilateral kidney stones. Bilateral internal ureteral stents in expected posi tions.
--- NOTE | 2023-03-18 07:41 | WPDHPUPDATE1 ---
History and Physical Update Update Date/Time: 03/18/23 07:41 History and Physical has been reviewed, including an updated exam of the patient. There are NO changes in the patient's condition. Risks, benefits, and alternatives have been discussed and questions answered. Patient agrees to proceed with procedure. KUB today reveals a larger residual stone in the left kidney. will address that side before moving on to the right. Proceed with left renal eswl.
[2023-03-18] MEDS: LACTATED RINGERS 1,000 ML 30 ML IV CONT (07:50)
--- NOTE | 2023-03-18 08:41 | WPDANESEPPF ---
Anes - Initial Pre Proc Eval Procedure: Operation Date: 03/18/23 09:00 Proposed Procedures p Right Extracorporeal Shock Wave Lithotripsy, - Yao Meehan MD s Cystoscopy, Left Stent Removal - Yao Meehan MD Date/Time: 03/18/23 08:41 Surgeon: Yao Meehan MD Pre Op Diagnosis: right kidney stone Patient Data Age: 67 Gender: M Height: 1.8 m Weight: 115 kg Last Vital Signs Temp 36.2 C L 03/18/23 07:14 Pulse 71 03/18/23 07:14 Resp 18 03/18/23 07:14 BP 145/86 H 03/18/23 07:14 Pulse Ox 98 03/18/23 07:14 O2 Del Method Room Air 03/18/23 07:14 Allergies Allergy/AdvReac Type Severity Reaction Status Date / Time No Known Allergies Allergy Unknown Verified 03/10/23 14:43 Home Medications Medication Instructions Recorded Confirmed Type krill oil 500 mg capsule 500 mg PO DAILY 12/01/21 03/10/23 History kfzfmfqrfaxx-zin-btnzf acid-vit 1 tablet PO DAILY 12/01/21 03/10/23 History K-lycop 400 mcg-20 mcg-370 mcg tablet (Men's 50 Plus Multivitamin) aspirin 325 mg tablet 325 mg PO DAILY 11/18/22 03/10/23 History tramadol 50 mg tablet 50 mg PO .q4 PRN pain #60 tabs 12/23/22 03/10/23 Rx duloxetine 30 mg capsule,delayed 30 mg PO DAILY #90 caps 03/04/23 03/10/23 Rx release allopurinol 300 mg tablet 300 mg PO DAILY #100 tabs 03/14/23 Rx amlodipine 10 mg tablet 10 mg PO DAILY #100 tabs 03/14/23 Rx metoprolol succinate 25 mg 25 mg PO DAILY #100 tabs 03/14/23 Rx tablet,extended release 24 hr triamterene 37.5 1 tablet PO DAILY #100 tabs 03/14/23 Rx mg-hydrochlorothiazide 25 mg tablet Patient hx anesthesia problems: none Family hx anesthesia problems: none Results Review: All pre-operative results and documents have been reviewed as part of the pre-operative evaluation. [facility] Past Medical History Medical History Obstructive sleep apnea (adult) (pediatric) Surgical History Surgical History H/O arthroscopy of knee H/O hernia repair H/O lumbosacral spine surgery History of appendectomy History of hip replacement S/P hip arthroscopy Family History Family History Mother Family history of cardiovascular disease Father Family history of malignant neoplasm of urinary bladder, Onset Age: 78 Social History Social History Smoking status: Never smoker Second hand tobacco smoke exposure: No Alcohol intake: never Substance use: never Substance use type: does not use Lack of Transportation: No Lack of Food: Never True Current Housing: I Have Housing Concerned About Future Housing: No Difficulty Paying Gas/Electric Bills: No Difficulty Paying for Meds: No Currently Unemployed: No Education: Trade/Vocational Certificate Difficulty w/ Childcare or Family Care: No Living arrangements: with family Occupation/Education: retired Gender identity (if verbalized by the patient): Male Spiritual care concerns: No Agree to blood products: Yes Anes - Eval Final PreProcedure Day of Procedure 03/18/23 08:41 Patient weight: obese Heart: regular rate and rhythm Lungs: decreased breath sounds Airway: Mallampati scale class II Neurological: alert and oriented Last oral intake: >/= 8 hours ASA classification: III Emergent: no Anesthetic plan: proceed Anesthesia type and monitoring: general LMA and standard monitoring Results Review: All pre-operative results and documents have been reviewed as part of the pre-operative evaluation. Informed Consent: The patient's anesthetic plan and its attendant risks and benefits were discussed with the patient/family/POA. Questions were solicited and answers provided to the satisfaction of the patient/family/POA.
[2023-03-18] MEDS: ceFAZolin 2 GM/D5W 50 ML 2 GM/50 ML BAG IVPB (09:24)
--- NOTE | 2023-03-18 10:08 | W.PM.PROC2 ---
Procedure Note - Detailed Date of Procedure 03/18/23 Pre-op Diagnosis Left kidney stone Post-op Diagnosis Same Procedure Performed Lithotripsy of left renal calculus Surgeon Yao Meehan MD Anesthesia General Description of Procedure Patient is taken the operative suite correctly identified. Once anesthesia was obtained the stone was localized in both planes. Twenty-five shocks were given to the stone. Patient tolerated procedure well without complication was taken recovery stable condition. A follow-up in 7-10 days with KUB. Please send a copy of op note to my office. Estimated Blood Loss 0 Drains Yes Packing No Pathology None sent Complications No immediate complications Condition Stable Disposition PACU
== END 2023-03-18 11:35 | disposition home or self-care (01) ==
PROVIDERS: PCP Emergency Medicine; Visit Provider Urology
PROC: (CPT 50590; principal; 2023-03-18 09:00)
DX: N20.0 Calculus of kidney (principal); G47.33 Obstructive sleep apnea (adult) (pediatric); E66.9 Obesity, unspecified; Z68.35 Body mass index [BMI] 35.0-35.9, adult; Z79.82 Long term (current) use of aspirin
CPT/HCPCS: 50590; 36415; 74018; 85610; 85730; 87086; J0690; J1100; J2250; J2405; J2704; J3010; J7030; J7120

== ENCOUNTER 2023-03-28 11:03 | Outpatient (CLI) | payer MEDICARE, SELFPAY ==
--- NOTE | ~2023-03-28 | XR_ITS ---
Supine and upright views of the abdomen Clinical history: Kidney stone COMPARISON: 03/18/2023 Findings: Bowel gas pattern is nonspecific. No evidence for obstruction or free air. Bilateral ureter al stents remain in place. Multiple bilateral renal stones are again present. Suspected 6 mm proximal to mid right ureteral stone adjacent to the stent. Osseous structures are intact. Impression: Multiple bilateral renal stones with bilateral ureteral stents present. Suspected 6 mm proximal to mid right ureteral stone. Reviewed, dictated and finalized at location . S PIPE INSPECTOR Impression: Multiple bilateral renal stones with bilateral ureteral stents present. Suspected 6 mm proximal to mid right ureteral stone.
== END 2023-03-28 11:04 | disposition home or self-care (01) ==
LOC: ANHIMG 11:08
PROVIDERS: PCP Emergency Medicine; Visit Provider Urology
DX: N20.0 Calculus of kidney (principal); Z96.0 Presence of urogenital implants
CPT/HCPCS: 74018

== ENCOUNTER 2023-04-01 06:59 | Day surgery (SDC) | payer MEDICARE, SELFPAY ==
[2023-03-30 11:04] VITALS: BMI 35.3
--- NOTE | 2023-03-30 11:04 | PC.NURSE ---
Report to the Outpatient Waiting Room, entrance under the green pavilion located off [facility], at time 0700 on date 04/01/23. Planned Procedure Time: 0900. Time changes happen often and if your time is changed the preop area will call you the afternoon before. - You and your visitor will be asked to self-screen and do not enter if you have any COVID symptoms. - A mask is optional within the hospital at this time. Patients may have clear liquids (water, carbonated beverages, clear teas, apple juice) until 3 hours prior to surgery with a maximum of 20 ounces. - No food from midnight until time of surgery Take the following medications with a SIP of water the morning of surgery: AMLODIPINE, DULOXETINE, METOPROLOL, TRAMADOL IF NEEDED DO NOT STOP ANY OF YOUR OTHER PRESCRIPTION MEDICATIONS PRIOR TO SURGERY ?EXCEPT THE FOLLOWING Medications to discontinue per physician: VITAMINS/SUPPLEMENTS, ASPIRIN Date to take last dose: NO MORE UNTIL AFTER SURGERY (PT HAS ALREADY STOPPED) Please no make-up, nail irish, hairspray, perfume, deodorant, or body powder the day of surgery. No jewelry (including any body piercings) or valuables the day of surgery, leave them at home. Please take a shower or bath the night before, or the morning of, surgery with an antibacterial soap. Wear comfortable, loose fitting clothing. - Jewelry must be removed prior to entering the operating room. Rings and piercings that are not removed may be cut off. - The hospital will not accept responsibility for valuables. - Please leave all valuables, including medications, at home the day of surgery. If you are going home after surgery, a licensed independent driver must drive you home. - NO public transportation without another adult if you receive anesthesia. - We recommend that an adult stay with you for 24 hours following discharge. - We also recommend that you do not drive, make important decision, drink alcoholic beverages, or take any drugs that were not prescribed by your health care provider for at least 24 hours after your discharge time. Follow any additional instructions given to you from your surgeon. If you or anyone in your household have experienced Covid symptoms in the past week, please notify your surgeon or the nurse liaison at the phone number below for possible testing. Telephone instructions given to PT - AYSHA RODRIGUEZ and asked if any additional questions and then verbalized understanding. Patient advised to call surgeon office or pre surgery nurse liaison [phone] if any additional questions.
[2023-04-01] VITALS (9 sets, daily range): BP systolic 128–165; BP diastolic 68–92; PULSE 63–78; RESP 12–18; TEMP 36.8; O2SAT 97–100
--- NOTE | ~2023-04-01 | XR_ITS ---
Supine and upright views of the abdomen Clinical history: Lithotripsy COMPARISON: 03/28/2023 Findings: Bowel gas pattern is nonspecific. No evidence for obstruction or free air. Bilateral ureter al stents are present. Numerous bilateral renal stones are present, similar to prior exam. No definit e right ureteral stones seen currently.. Bilateral hip arthroplasties and lumbosacral spinal fixation hardware again present. Impression: Bilateral ureteral stents with numerous bilateral renal stones. No definite right ureteral stones seen currently. Reviewed, dictated and finalized at [facility]. [place] RECEIVING CLERK Impression: Bilateral ureteral stents with numerous bilateral renal stones. No definite right ureteral stones seen currently.
--- NOTE | 2023-04-01 07:16 | WPDHPUPDATE1 ---
History and Physical Update Update Date/Time: 04/01/23 07:16 History and Physical has been reviewed, including an updated exam of the patient. There are NO changes in the patient's condition. Risks, benefits, and alternatives have been discussed and questions answered. Patient agrees to proceed with procedure. Proceed with cysto, right stent removal, eswl of left ureteral and renal calculus
[2023-04-01 07:30] LABS: Appearance Urine Cloudy (Clear); Bacteria Urine None Seen /hpf; Bilirubin Urine Negative (Negative); Blood Urine 3+ (Negative); Color Urine Yellow (Yellow); Glucose Urine UA Negative (Negative); Ketones Urine Negative (Negative); Leukocyte Esterase Ur 2+ LEU/UL (Negative); Nitrate Urine Negative (Negative); Protein Urine 2+ mg/dL (Negative); RBC Urine >100 /hpf (0-2); Specific Grav Ur 1.017 (1.001-1.035); Squamous Epithelial Cell Urine Few /hpf (Few); WBC Urine 21-50 /hpf; pH Urine 5.5 (5.0-9.0)
[2023-04-01 07:37] LABS: Add Urine Microscopic? YES
--- NOTE | 2023-04-01 07:53 | WPDANESEPPF ---
Anes - Initial Pre Proc Eval Procedure: Operation Date: 04/01/23 09:00 Proposed Procedures p Right Extracorporeal Shock Wave Lithotripsy - Yao Meehan MD s Cystoscopy Left Stent Removal, Possible Right Stent Placement - Yao Meehan MD Date/Time: 04/01/23 07:53 Surgeon: Yao Meehan MD Pre Op Diagnosis: Renal Kidney Stone Patient Data Age: 67 Gender: M Height: 1.8 m Weight: 115 kg Allergies Allergy/AdvReac Type Severity Reaction Status Date / Time No Known Allergies Allergy Unknown Verified 03/30/23 11:03 Home Medications Medication Instructions Recorded Confirmed Type krill oil 500 mg capsule 500 mg PO DAILY 12/01/21 03/30/23 History mnwodnrgmsmy-ddf-djhrb acid-vit 1 tablet PO DAILY 12/01/21 03/30/23 History K-lycop 400 mcg-20 mcg-370 mcg tablet (Men's 50 Plus Multivitamin) aspirin 325 mg tablet 325 mg PO DAILY 11/18/22 03/30/23 History tramadol 50 mg tablet 50 mg PO .q4 PRN pain #60 tabs 12/23/22 03/30/23 Rx duloxetine 30 mg capsule,delayed 30 mg PO DAILY #90 caps 03/04/23 03/30/23 Rx release allopurinol 300 mg tablet 300 mg PO DAILY #100 tabs 03/14/23 03/30/23 Rx amlodipine 10 mg tablet 10 mg PO DAILY #100 tabs 03/14/23 03/30/23 Rx metoprolol succinate 25 mg 25 mg PO DAILY #100 tabs 03/14/23 03/30/23 Rx tablet,extended release 24 hr triamterene 37.5 1 tablet PO DAILY #100 tabs 03/14/23 03/30/23 Rx mg-hydrochlorothiazide 25 mg tablet Laboratory Tests 04/01/23 04/01/23 07:13 07:36 PT Pending INR Pending APTT Pending Urine Color Yellow (Yellow) Urine Appearance Cloudy H (Clear) Urine pH 5.5 (5.0-9.0) Ur Specific [place] 1.017 (1.001-1.035) Urine Protein 2+ H mg/dL (Negative) Urine Glucose (UA) Negative mg/dL (Negative) Urine Ketones Negative mg/dL (Negative) Ur Blood (Man) 3+ H (Negative) Urine Nitrate Negative (Negative) Urine Bilirubin Negative (Negative) Urine Urobilinogen 1.0 mg/dL (<2.0) Leukocyte Esterase Rfl 2+ H KHAI/UL (Negative) Urine RBC >100 H /hpf (0-2) Urine WBC 21-50 H /hpf Ur Squamous Epith Cells Few /hpf (Few) Urine Bacteria None seen /hpf Urine Casts 3-5 Patient hx anesthesia problems: none Family hx anesthesia problems: none Results Review: All pre-operative results and documents have been reviewed as part of the pre-operative evaluation. [facility] Past Medical History Medical History Obstructive sleep apnea (adult) (pediatric) Surgical History Surgical History H/O arthroscopy of knee H/O hernia repair H/O lumbosacral spine surgery History of appendectomy History of hip replacement S/P hip arthroscopy Family History Family History Mother Family history of cardiovascular disease Father Family history of malignant neoplasm of urinary bladder, Onset Age: 78 Social History Social History Smoking status: Never smoker Second hand tobacco smoke exposure: No Alcohol intake: never Substance use: never Substance use type: does not use Lack of Transportation: No Lack of Food: Never True Current Housing: I Have Housing Concerned About Future Housing: No Difficulty Paying Gas/Electric Bills: No Difficulty Paying for Meds: No Currently Unemployed: No Education: Trade/Vocational Certificate Difficulty w/ Childcare or Family Care: No Living arrangements: with family Occupation/Education: retired Gender identity (if verbalized by the patient): Male Spiritual care concerns: No Agree to blood products: Yes Anes - Eval Final PreProcedure Day of Procedure 04/01/
[2023-04-01 07:58] LABS: INR 0.9; Prothrombin Time 12.7 Seconds (11.1-14.7)
[2023-04-01 07:59] LABS: Partial Thromboplastin Time 25.5 SECONDS (22.3-36.8)
[2023-04-01] MEDS: ceFAZolin 2 GM/D5W 50 ML 2 GM/50 ML BAG IVPB (08:32)
--- NOTE | 2023-04-01 08:37 | SUR.OPER ---
u/a pending Dr Meehan notified in Pre op to proceed.
[2023-04-01] MEDS: LACTATED RINGERS 1,000 ML 30 ML IV CONT (09:25)
[2023-04-01] MEDS: fentaNYL CITRATE INJ (*CRX) 100 MCG/2 ML VIAL 25 MCG IV PUSH ×2 (09:40→09:43)
[2023-04-01] MEDS: oxyCODONE HCL (*CRX) 5 MG TAB IR PO (10:24)
--- NOTE | 2023-04-01 10:53 | W.PM.PROC2 ---
Procedure Note - Detailed Date of Procedure 04/01/23 Pre-op Diagnosis Renal Kidney Stone, retained left ureteral stent Post-op Diagnosis Same Procedure Performed Cystoscopy with left stent removal, lithotripsy of right renal calculus Surgeon Yao Meehan MD Anesthesia General Description of Procedure Patient is taken the operative suite correctly identified. Once anesthesia was obtained he was prepped and draped usual sterile fashion. Flexible cystoscopy was entered into the bladder direct vision. The left ureteral stent was grasped and removed in its entirety. Patient was then repositioned in the right renal stones were visualized. We started with the lower pole stones and started at the most superior aspect. Two thousand five hundred shocks were given. Again there appeared to be fragmentation but the patient has a significant stone burden. He is taken recovery stable condition. He will follow-up in 7-10 days with KUB. This completes dictation. Please send a copy of op note to my office. Estimated Blood Loss 0 Drains No Packing No Pathology None sent Complications No immediate complications Condition Stable Disposition PACU
--- NOTE | 2023-04-01 11:29 | SUR.PHASEII ---
Spoke to Dr. Meehan regarding patient's need for antibiotics upon discharged. Stated he would send prescriptions to patient's pharmacy from his office.
== END 2023-04-01 11:40 | disposition home or self-care (01) ==
PROVIDERS: PCP Emergency Medicine; Visit Provider Urology
PROC: (CPT 50590; principal; 2023-04-01 09:00)
PROC: (CPT 52352; 2023-04-01 09:00)
DX: N20.0 Calculus of kidney (principal); G47.33 Obstructive sleep apnea (adult) (pediatric); E66.9 Obesity, unspecified; Z68.36 Body mass index [BMI] 36.0-36.9, adult; Z79.82 Long term (current) use of aspirin
CPT/HCPCS: 50590; 52310; 36415; 74018; 81001; 85610; 85730; 87086; A9270; J0690; J1100; J2250; J2405; J2704; J3010; J7030; J7120

== ENCOUNTER 2023-04-11 08:56 | Outpatient (CLI) | payer MEDICARE, SELFPAY ==
--- NOTE | ~2023-04-11 | XR_ITS ---
EXAMINATION: XR abdomen/kub 1V INDICATION: Calcium kidney stone TECHNIQUE: Supine views of the abdomen were obtained on 2 radiographs. COMPARISON: 04/01/2023 FINDINGS: A right internal ureteral stent is in expected position. The left internal ureteral stent h as been removed. There are multiple stones or clusters of stones in the right kidney which are unchan ged. The largest measures 2.1 cm in the lower pole. There are multiple stones or clusters of stones i n the left kidney which appear to be unchanged. The largest measures 2.0 cm in the mid kidney. There are phleboliths of the pelvis. No stones are identified along the expected courses of the ureters. Th e bowel gas pattern is normal. Bilateral total hip arthroplasties are noted. IMPRESSION: 1. Stable bilateral nephrolithiasis. Interval left internal ureteral stent removal. Reviewed, dictated and finalized at location B. ANTINE INSPECTOR IMPRESSION: 1. Stable bilateral nephrolithiasis. Interval left internal ureteral stent dilma abhijit.
== END 2023-04-11 08:57 | disposition home or self-care (01) ==
PROVIDERS: PCP Emergency Medicine; Visit Provider Urology
DX: N20.0 Calculus of kidney (principal)
CPT/HCPCS: 74018

== ENCOUNTER 2023-04-20 09:32 | Outpatient (CLI) | payer MEDICARE, SELFPAY ==
[2023-04-20 10:02] LABS: Anion Gap 5 mmol/L (8-16); Blood Urea Nitrogen 30 mg/dL (9-20); Calcium 9.5 mg/dL (8.4-10.2); Carbon Dioxide 30 mmol/L (22-30); Chloride 105 mmol/L (98-107); Estimated Glomerular Filt Rate 40; Glucose 109 mg/dL (65-110); Potassium 4.1 mmol/L (3.4-5.0); Sodium 140 mmol/L (137-145)
== END 2023-04-20 09:33 | disposition home or self-care (01) ==
PROVIDERS: Anesthesiology; PCP Emergency Medicine; Visit Provider Urology
DX: Z01.818 Encounter for other preprocedural examination (principal); Z51.81 Encounter for therapeutic drug level monitoring
CPT/HCPCS: 36415; 80048

== ENCOUNTER 2023-04-26 00:31 | Day surgery (SDC) | payer MEDICARE, SELFPAY ==
[2023-04-19 14:01] VITALS: BMI 35.3
--- NOTE | 2023-04-19 14:32 | PC.NURSE ---
Report to the Outpatient Waiting Room, entrance under the green pavilion located off [facility], at time __12:15PM on date ___04/26/23____. Planned Procedure Time: __2:15PM . Time changes happen often and if your time is changed the preop area will call you the afternoon before. - You and your visitor will be asked to self-screen and do not enter if you have any COVID symptoms. - A mask is optional within the hospital at this time. Patients may have clear liquids (water, carbonated beverages, clear teas, apple juice) until 3 hours prior to surgery with a maximum of 20 ounces. - No food from midnight until time of surgery. Take the following medications with a SIP of water the morning of surgery: ___AMLODIPINE, METOPROLOL. TRAMADOL NEEDED FOR PAIN.__ DO NOT STOP ANY OF YOUR OTHER PRESCRIPTION MEDICATIONS PRIOR TO SURGERY ?EXCEPT THE FOLLOWING Medications to discontinue per physician HOLD ASPIRIN 7 DAYS PRE-OP PER DR DELGADO- LAST DOSE 04/18/23.__ HOLD ALL VITAMINS/SUPPLEMENTS 3 DAYS PRE-OP PER ANESTHESIA- LAST DOSE 04/22/23. Please no make-up, nail persian, hairspray, perfume, deodorant, or body powder the day of surgery. No jewelry (including any body piercings) or valuables the day of surgery, leave them at home. Please take a shower or bath the night before, or the morning of, surgery with an antibacterial soap. Wear comfortable, loose fitting clothing. - Jewelry must be removed prior to entering the operating room. Rings and piercings that are not removed may be cut off. - The hospital will not accept responsibility for valuables. - Please leave all valuables, including medications, at home the day of surgery. If you are going home after surgery, a licensed driver wheelchair must drive you home. - NO public transportation without another adult if you receive anesthesia. - We recommend that an adult stay with you for 24 hours following discharge. - We also recommend that you do not drive, make important decision, drink alcoholic beverages, or take any drugs that were not prescribed by your health care provider for at least 24 hours after your discharge time. Follow any additional instructions given to you from your surgeon. If you or anyone in your household have experienced Covid symptoms in the past week, please notify your surgeon or the nurse liaison at the phone number below for possible testing. Telephone instructions given to ____PATIENT and asked if any additional questions and then verbalized understanding. Patient advised to call surgeon office or pre surgery nurse liaison [phone] if any additional questions.
--- NOTE | 2023-04-25 13:10 | WPDANESEPPF ---
Anes - Initial Pre Proc Eval Procedure: Operation Date: 04/26/23 14:15 Proposed Procedures p Cystoscopy, Right Retrograde Pyelogram, Right Ureteroscopy, Right Stone Extraction, Right Stent Placement, Possible Holmium Laser - Yao Meehan MD Date/Time: 04/25/23 13:10 Surgeon: Yao Meehan MD Pre Op Diagnosis: right ureteral calculus Patient Data Age: 67 Gender: M Height: 1.8 m Weight: 115 kg Allergies Allergy/AdvReac Type Severity Reaction Status Date / Time No Known Allergies Allergy Unknown Verified 04/26/23 13:01 Home Medications Medication Instructions Recorded Confirmed Type krill oil 500 mg capsule 500 mg PO DAILY 12/01/21 04/19/23 History oykbknfbwyvn-isy-cgmel acid-vit 1 tablet PO DAILY 12/01/21 04/19/23 History K-lycop 400 mcg-20 mcg-370 mcg tablet (Men's 50 Plus Multivitamin) aspirin 325 mg tablet 325 mg PO QAM 11/18/22 04/19/23 History tramadol 50 mg tablet 50 mg PO .q4 PRN pain #60 tabs 12/23/22 04/19/23 Rx allopurinol 300 mg tablet 300 mg PO QAM 04/19/23 04/19/23 History amlodipine 10 mg tablet 10 mg PO QAM 04/19/23 04/26/23 History duloxetine 30 mg capsule,delayed 30 mg PO HS 04/19/23 04/19/23 History release metoprolol succinate 25 mg 25 mg PO QAM 04/19/23 04/26/23 History tablet,extended release 24 hr triamterene 37.5 1 tablet PO QAM 04/19/23 04/19/23 History mg-hydrochlorothiazide 25 mg tablet Patient hx anesthesia problems: none Family hx anesthesia problems: none Results Review: All pre-operative results and documents have been reviewed as part of the pre-operative evaluation. [facility] Past Medical History Medical History (Updated 04/25/23 @ 13:11 by Torin Lipscomb DO) Dyslipidemia Essential (primary) hypertension History of heart attack silent - no intervention Obstructive sleep apnea (adult) (pediatric) Surgical History Surgical History H/O arthroscopy of knee H/O hernia repair H/O lumbosacral spine surgery History of appendectomy History of hip replacement S/P hip arthroscopy Family History Family History Mother Family history of cardiovascular disease Father Family history of malignant neoplasm of urinary bladder, Onset Age: 78 Social History Social History Smoking status: Never smoker Second hand tobacco smoke exposure: No Alcohol intake: never Substance use: never Substance use type: does not use Lack of Transportation: No Lack of Food: Never True Current Housing: I Have Housing Concerned About Future Housing: No Difficulty Paying Gas/Electric Bills: No Difficulty Paying for Meds: No Currently Unemployed: No Education: Trade/Vocational Certificate Difficulty w/ Childcare or Family Care: No Living arrangements: with family Additional living arrangements comments: Occupation/Education: retired Gender identity (if verbalized by the patient): Male Spiritual care concerns: No Agree to blood products: Yes Anes - Eval Final PreProcedure Day of Procedure 04/25/23 13:10 Patient weight: obese Heart: regular rate and rhythm Lungs: clear to auscultation Airway: Mallampati scale class II and special considerations poor dentition Neurological: alert and oriented Last oral intake: >/= 8 hours ASA classification: III Emergent: no Anesthetic plan: proceed Anesthesia type and monitoring: general LMA and standard monitoring Results Review: All pre-operative results and documents have been reviewed as part of the pre-operative evaluation. Informed Consent: The patient's anesthetic plan and its attendant risks and benefits were discussed with the patient/family/POA. Questions were solicited and answers provided to the satisfaction of the patient/family/POA.
[2023-04-26] VITALS (9 sets, daily range): BP systolic 129–156; BP diastolic 69–87; PULSE 59–73; RESP 12–18; TEMP 36.8–37.2; O2SAT 97–100
--- NOTE | ~2023-04-26 | XR_ITS ---
EXAMINATION: XR retrograde pyelo w/stent RT DATE: 04/26/2023 14:15 CDT INDICATION: Right sided stone. TECHNIQUE: 3 fluoroscopic images of the right abdomen and pelvis were obtained during right retrograd e pyelography with stent placement, performed by Yao Meehan MD. I was not present during the procedure. Fluoroscopy exposure time was 43.6 seconds. Air Kerma 31.36 mGy. DAP 1.20 mGym2. COMPARISON: None FINDINGS/IMPRESSION: Fluoroscopic documentation of retrograde pyelography with stent placement. Right ureteral stent is in good position. Please refer to the operative note for complete procedural details. Reviewed, dictated and finalized at location K.
--- NOTE | 2023-04-26 11:56 | WPDHPUPDATE1 ---
History and Physical Update Update Date/Time: 04/26/23 11:56 History and Physical has been reviewed, including an updated exam of the patient. There are NO changes in the patient's condition. Risks, benefits, and alternatives have been discussed and questions answered. Patient agrees to proceed with procedure. Proceed with cystoscopy, right retrograde pyelogram, right ureteroscopy with holmium laser, stone extraction, right ureteral stent exchange
[2023-04-26] MEDS: LACTATED RINGERS 1,000 ML 30 ML IV CONT (13:00)
--- NOTE | 2023-04-26 15:14 | P.OP_ITS ---
Procedure Note - Detailed Date of Procedure 04/26/23 Pre-op Diagnosis right renal calculus, retained right ureteral stent Post-op Diagnosis Same Procedure Performed Cystoscopy, right stent removal, right ureteroscopy with holmium laser, stone extraction, right ureteral stent placement 4.8 Sinhala contour Surgeon Yao Meehan MD Anesthesia General Description of Procedure Patient was taken the operative suite correctly identified. Once anesthesia was obtained was placed in dorsal lithotomy position prepped draped usual sterile fashion. Twenty-two Sinhala scope was inserted the bladder. The prior stent was grasped and brought out to the meatus. Sensor wire was placed. Ureteral access sheath was placed. Mini flexible ureteral scope was then inserted. Patient had numerous stone fragments in the upper poles as well as lower pole. Using a 200 micron fiber we tried to dust these as much as possible. The larger fragments were retrieved using an escape basket. Pyelogram was then performed to confirm placement the stent. 4.8 Sinhala contour stent was placed with the proximal end coiled in the renal pelvis and the distal in the bladder. Bladder was drained. 2% viscous lidocaine was inserted into the urethra patient is taken recovery stable condition. He will follow-up in 1-2 weeks for stent removal. This completes dictation. Please send a copy of op note to my office. Estimated Blood Loss 0 Drains Yes Packing No Pathology Yes Complications No immediate complications Condition Stable Disposition PACU
[2023-04-26] MEDS: oxyCODONE HCL (*CRX) 5 MG TAB IR PO (16:36)
== END 2023-04-26 17:10 | disposition home or self-care (01) ==
PROVIDERS: PCP Emergency Medicine; Visit Provider Urology
PROC: (CPT 52352; principal; 2023-04-26 14:15)
DX: N20.1 Calculus of ureter (principal); I10 Essential (primary) hypertension; E78.5 Hyperlipidemia, unspecified; G47.33 Obstructive sleep apnea (adult) (pediatric); I25.2 Old myocardial infarction; E66.9 Obesity, unspecified; Z68.35 Body mass index [BMI] 35.0-35.9, adult; Z79.82 Long term (current) use of aspirin; Z79.891 Long term (current) use of opiate analgesic; Z98.890 Other specified postprocedural states; Z98.1 Arthrodesis status; Z82.49 Family history of ischemic heart disease and other diseases of the circulatory system; Z80.52 Family history of malignant neoplasm of bladder
CPT/HCPCS: 52356; 36415; 74420; 80048; 82365; 88300; A9270; C1769; C1894; C2617; J1100; J2250; J2405; J2704; J3010; J7120; Q9966

== ENCOUNTER 2023-05-13 15:30 | Outpatient (CLI) | payer MEDICARE, SELFPAY ==
--- NOTE | ~2023-05-13 | XR_ITS ---
XR_[id number]_CR 05/13/2023 15:45 Indication: Neck pain Procedure: 3 view cervical spine Comparison: No prior studies for comparison. Findings: Normal cervical alignment. There is disc narrowing and endplate degenerative change at C4-5 , C5-6 and C6-7. No prevertebral soft tissue swelling. There is multilevel uncinate and facet hypertr ophy. No acute fracture or traumatic malalignment. Odontoid process is normal. Normal cervical alignm ent. Impression: 1: Moderate-severe cervical spondylosis. Reviewed, dictated and finalized at location B. Impression: 1: Moderate-severe cervical spondylosis.
--- NOTE | ~2023-05-13 | XR_ITS ---
XR forearm LT 2V 05/13/2023 15:45 Indication: Left arm pain Procedure: 2 views left forearm Comparison: No prior studies for comparison. Findings: No fracture or traumatic malalignment. Normal mineralization. No focal soft tissue abnormal ity. No foreign bodies. Impression: 1: No acute bone or joint abnormality. Reviewed, dictated and finalized at location B. Impression: 1: No acute bone or joint abnormality.
--- NOTE | ~2023-05-13 | XR_ITS ---
EXAM: XR shoulder LT min 2V DATE: 05/13/2023 15:45 HISTORY: no injury pain left arm and left side of neck for 4 days . COMPARISON: None available. FINDINGS: Normal mineralization. No fracture or dislocation. No lytic or blastic lesion. Mild acromi oclavicular and glenohumeral osteoarthritis. No erosion or periosteal change. Soft tissues within nor mal limits. IMPRESSION: No acute osseous finding in the left shoulder. Reviewed, dictated and finalized at location K.
--- NOTE | ~2023-05-13 | XR_ITS ---
EXAM: XR elbow LT min 3V DATE: 05/13/2023 15:45 HISTORY: no injury pain left arm and left side of neck for 4 days . COMPARISON: None available. FINDINGS: Normal mineralization. No fracture or dislocation. No lytic or blastic lesion. Mild degene rative change in the elbow and wrist. No erosion or periosteal change. Vascular calcification, soft t issues otherwise normal. IMPRESSION: No acute osseous finding in the left forearm or elbow. Reviewed, dictated and finalized at location K.
== END 2023-05-13 15:31 ==
PROVIDERS: PCP Emergency Medicine; Visit Provider Emergency Medicine
DX: M43.02 Spondylolysis, cervical region (principal); M79.602 Pain in left arm
CPT/HCPCS: 72040; 73030; 73080; 73090

== ENCOUNTER 2023-06-08 13:23 | Outpatient (CLI) | payer MEDICARE, SELFPAY ==
--- NOTE | 2023-06-08 14:45 | NEURO_ITS ---
Impression: # Complains of numbness of left hand. # Left mild Carpal Tunnel Syndrome. 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 # There is cross innervation ulnar to median on above the elbow stimulation of ulnar nerve and recording at [facility]B. Nerve Conduction Studies Anti Sensory Summary Table Stim Site NR Peak (ms) P-T Amp (?V) Site1 Site2 Delta-P (ms) Dist (cm) Ori (m/s) Left Median Anti Sensory (2-3nd Digit) Wrist 3.9 30.2 Wrist 2-3nd Digit 3.9 14.0 36 Wrist 4.0 27.8 Wrist 2-3nd Digit 3.9 14.0 36 Left Radial Anti Sensory (Base 1st Digit) Wrist 2.4 13.5 Wrist Base 1st Digit 2.4 0.0 Left Ulnar Anti Sensory (5th Digit) Wrist 3.0 24.4 Wrist 5th Digit 3.0 14.0 47 Motor Summary Table Stim Site NR Onset (ms) O-P Amp (mV) Site1 Site2 Delta-0 (ms) Dist (cm) Ori (m/s) Left Median Motor (Abd Poll Brev) Wrist 4.5 0.7 Elbow Wrist 6.3 32.0 51 Elbow 10.8 0.6 ELB/ADM Wrist 3.6 0.0 Left Ulnar Motor (Abd Dig Minimi) Wrist 2.7 2.7 A Elbow Wrist 6.7 33.0 49 A Elbow 9.4 1.9 B Elbow Wrist 3.9 23.0 59 B Elbow 6.6 1.1 F Wave Studies NR F-Lat (ms) L-R F-Lat (ms) Left Median (Mrkrs) (Abd Poll Brev) 35.20 Left Ulnar (Mrkrs) (Abd Dig Min) 36.20 EMG Side Muscle Nerve Root Ins Act Fibs Amp Dur Recrt Comment Left 1stDorInt Ulnar C8-T1 Nml Nml Nml Nml Nml Left Ext Indicis Radial (Post Int) C7-8 Nml Nml Nml Nml Nml Left Ext Digitorum Radial (Post Int) C7-8 Nml Nml Nml Nml Nml Left BrachioRad Radial C5-6 Nml Nml Nml Nml Nml Left PronatorTeres Median C6-7 Nml Nml Nml Nml Nml Left Abd Poll Brev Median C8-T1 Nml Nml Nml Nml Nml Left ABD Dig Min Ulnar C8-T1 Nml Nml Nml Nml Nml MTDD
== END 2023-06-08 13:24 | disposition home or self-care (01) ==
PROVIDERS: PCP Emergency Medicine; Visit Provider Emergency Medicine
DX: G56.22 Lesion of ulnar nerve, left upper limb (principal); G56.02 Carpal tunnel syndrome, left upper limb; R94.131 Abnormal electromyogram [EMG]
CPT/HCPCS: 95886; 95909

== ENCOUNTER 2023-06-20 09:26 | Outpatient (CLI) | payer MEDICARE, SELFPAY ==
--- NOTE | ~2023-06-20 | XR_ITS ---
Supine and upright views of the abdomen Clinical history: Renal stone COMPARISON: 04/11/2023 Findings: Bowel gas pattern is nonspecific. No evidence for obstruction or free air. Multiple bilater al renal stones are present, however bilateral lower pole stone seen on prior exam are no longer nadine rly visualized. Lumbosacral spinal fixation hardware and bilateral hip arthroplasties are present.. Impression: Bilateral renal stones, probably decreased in number from prior exam. Reviewed, dictated and finalized at location M. Impression: Bilateral renal stones, probably decreased in number from prior exam.
== END 2023-06-20 09:27 | disposition home or self-care (01) ==
PROVIDERS: PCP Emergency Medicine; Visit Provider Urology
DX: N20.0 Calculus of kidney (principal)
CPT/HCPCS: 74018

== ENCOUNTER 2023-08-10 10:45 | Outpatient (CLI) | payer MEDICARE, SELFPAY ==
[2023-08-10 11:17] LABS: Anion Gap 7 mmol/L (4-12); Blood Urea Nitrogen 26 mg/dL (9-20); Calcium 9.2 mg/dL (8.4-10.2); Carbon Dioxide 30 mmol/L (22-30); Chloride 103 mmol/L (98-107); Estimated Glomerular Filt Rate 40; Glucose 90 mg/dL (65-110); Potassium 3.3 mmol/L (3.4-5.0); Sodium 140 mmol/L (137-145)
== END 2023-08-10 10:46 | disposition home or self-care (01) ==
LOC: ANHSURGERY 10:50
PROVIDERS: Anesthesiology; PCP Emergency Medicine; Visit Provider Plastic Surgery
DX: I10 Essential (primary) hypertension (principal)
CPT/HCPCS: 36415; 80048

== ENCOUNTER 2023-08-17 01:58 | Day surgery (SDC) | payer MEDICARE, SELFPAY ==
--- NOTE | 2023-08-08 15:03 | PC.NURSE ---
Addendum entered by Delaney Jacobs RN 08/09/23 14:54: Pt informed no food after midnight. Original Note: Report to the Outpatient Waiting Room, entrance under the green pavilion located off [facility], at time12:15 PM on date __08/17/23 . Planned Procedure Time: __2:15 PM . Time changes happen often and if your time is changed the preop area will call you the afternoon before. - You and your visitor will be asked to self-screen and do not enter if you have any COVID symptoms. - A mask is optional within the hospital at this time. NOTHING TO EAT OR DRINK 8 HOURS PRIOR TO SURGERY( 6:15 AM) PER DR GARCIA Take the following medications with a SIP of water the morning of surgery: __AMLODIPINE,METOPROLOL DO NOT STOP ANY OF YOUR OTHER PRESCRIPTION MEDICATIONS PRIOR TO SURGERY ?EXCEPT THE FOLLOWING Medications to discontinue per physician ___ASPIRIN PER DR GARCIA, HOLD ALL VITAMINS AND SUPPLEMENTS 3 DAYS PRE OP .LAST DOSE 08/13/23 Please no make-up, nail mongolian, hairspray, perfume, deodorant, or body powder the day of surgery. No jewelry (including any body piercings) or valuables the day of surgery, leave them at home. Please take a shower or bath the night before, or the morning of, surgery with an antibacterial soap. Wear comfortable, loose fitting clothing. Children are encouraged to wear pajamas. - Jewelry must be removed prior to entering the operating room. Rings and piercings that are not removed may be cut off. - The hospital will not accept responsibility for valuables. - Please leave all valuables, including medications, at home the day of surgery. If you are going home after surgery, a licensed bus driver school must drive you home. - NO public transportation without another adult if you receive anesthesia. - We recommend that an adult stay with you for 24 hours following discharge. - We also recommend that you do not drive, make important decision, drink alcoholic beverages, or take any drugs that were not prescribed by your health care provider for at least 24 hours after your discharge time. Follow any additional instructions given to you from your surgeon. If you or anyone in your household have experienced Covid symptoms in the past week, please notify your surgeon or the nurse liaison at the phone number below for possible testing. Telephone instructions given to ___PATIENT and asked if any additional questions and then verbalized understanding. Patient advised to call surgeon office or pre surgery nurse liaison [phone] if any additional questions.
[2023-08-08 15:12] VITALS: BMI 33.9
[2023-08-17 06:35] VITALS: BP 113/79; PULSE 63; RESP 18; TEMP 36.2; O2SAT 98
--- NOTE | 2023-08-17 06:53 | PM.HPGS ---
History of Present Illness History of Present Illness Chief complaint: left carpal and cubital tunnel syndrome Narrative: Patient seen and examined in pre-operative holding area. No interval change in medical history or symptoms. Patient recalls previous discussion of benefits and alternatives to procedure. Continues to desire to proceed with left endoscopic possible open carpal tunnel release and left cubital tunnel release . Reviewed procedure, post-op expectations and risks including but not limited to bleeding, infection, injury to tendon/nerve/vessel, decreased hand function, stiffness, RSD, no change or worsening of symptoms. I discussed the possible use of assistants and their participation in the case. Patient stated understanding and signed the consent form wishing to proceed. Review of Systems Review of Systems: All systems reviewed & are unremarkable except as noted in HPI and below PMFSH Past Medical History Medical History Dyslipidemia Essential (primary) hypertension History of heart attack silent - no intervention Obstructive sleep apnea (adult) (pediatric) Surgical History Surgical History H/O arthroscopy of knee H/O hernia repair H/O lumbosacral spine surgery History of appendectomy History of hip replacement S/P hip arthroscopy Family History Family History Mother Family history of cardiovascular disease Father Family history of malignant neoplasm of urinary bladder, Onset Age: 78 Social History Social History Smoking status: Never smoker Second hand tobacco smoke exposure: No Alcohol intake: never Substance use: never Substance use type: does not use Lack of Transportation: No Lack of Food: Never True Current Housing: I Have Housing Concerned About Future Housing: No Difficulty Paying Gas/Electric Bills: No Difficulty Paying for Meds: No Currently Unemployed: No Education: Trade/Vocational Certificate Difficulty w/ Childcare or Family Care: No Living arrangements: with family Additional living arrangements comments: Occupation/Education: retired Gender identity (if verbalized by the patient): Male Spiritual care concerns: No Agree to blood products: Yes Meds Home Medications and Allergies Home Medications Medication Instructions Recorded Confirmed Type krill oil 500 mg capsule 500 mg PO DAILY 12/01/21 08/17/23 History gpiscqpssqjc-wox-ynrdc acid-vit 1 tablet PO DAILY 12/01/21 08/17/23 History K-lycop 400 mcg-20 mcg-370 mcg tablet (Men's 50 Plus Multivitamin) aspirin 325 mg tablet 325 mg PO QAM 11/18/22 08/17/23 History tramadol 50 mg tablet 50 mg PO Q6H PRN pain #20 tabs 04/26/23 08/17/23 Rx allopurinol 300 mg tablet 300 mg PO QAM #100 tabs 08/05/23 08/17/23 Rx amlodipine 10 mg tablet 10 mg PO QAM #100 tabs 08/05/23 08/17/23 Rx metoprolol succinate 25 mg 25 mg PO QAM #100 tabs 08/05/23 08/17/23 Rx tablet,extended release 24 hr triamterene 37.5 1 tablet PO QAM #100 tabs 08/05/23 08/17/23 Rx mg-hydrochlorothiazide 25 mg tablet duloxetine 30 mg capsule,delayed 60 mg PO QPM NEUROPATHY PAIN 08/08/23 08/17/23 History release Allergies Allergy/AdvReac Type Severity Reaction Status Date / Time No Known Allergies Allergy Unknown Verified 08/17/23 06:39 Vital Signs Vital Signs - 24 hr 08/17/23 06:35 Temperature 36.2 C L Pulse Rate 63 Respiratory Rate 18 Blood Pressure 113/79 Pulse Oximetry 98 Oxygen Delivery Room Air Exam Narrative: unchanged Assessment and Plan Assessment and plan (1) Carpal tunnel syndrome of left wrist: Code(s): G56.02 - Carpal tunnel syndrome, left upper limb Status: Acute Assessment and Plan: cont as above (2) Cubital tunnel syndrome
--- NOTE | 2023-08-17 06:54 | P.OP_ITS ---
Procedure Note - Detailed Date of Procedure 08/17/23 Pre-op Diagnosis left carpal and cubital tunnel syndrome Post-op Diagnosis Same Procedure Performed left carpal and cubital tunnel release Surgeon Kodi Lara MD Anesthesia MAC Description of Procedure INFORMED CONSENT: The patient was seen and examined and marked in the pre-op area.? The patient signed the consent form. PROCEDURE IN DETAIL:The patient taken back to OR on the stretcher in supine position. Time out performed with anesthesia, surgeon and staff agreeing on patient's name site and surgery to be performed SCDs were placed on the lower extremities and inflated. A tourniquet was placed on {left} upper extremity and antibiotics given IV After anesthesia administered sedation I injected {10}cc 1%lido with epi and 0.5% marcaine plain at the operative sites The?{left upper extremity}?was prepped and draped in sterile fashion the??{left upper extremity} was? exsanguinated with Esmarch bandage and tourniquet inflated to 250mmHg I made a transverse incision in the {left} volar distal wrist crease through skin and dermis with 15 blade scalpel.? Littler scissors spread down to antebrachial fascia. A small incision was made in antebrachial fascia allowing access to Carpal tunnel. I proceeded with sequential dilation staying in line with the ring finger and hugging the hook of the hamate.? I then used the synovial elevator to free any adhesions from the underside of the transverse carpal ligament. Next I was able to insert the Microaire endoscopic carpal tunnel device with direct visualization of the transverse fibers on the monitor and proceeded with complete segmental retrograde release of the ligament in its entirety.? I irrigated with normal saline and closed with 4-0 monocryl for dermis and subcuticular closure. I next proceeded with making a longitudinal incision between two heads for flexor carpi ulnaris at end of {left} cubital tunnel with 15 blade scalpel.? Littler scissors were used to spread down to FCU fascia.? An incision was made in FCU fascia and ulnar nerve identified exiting cubital tunnel.? I proceeded with complete retrograde release of the cubital tunnel including 7cm proximal for the intermuscular septum.? The nerve appeared healthy with visible vaso nervorum.? There was no subluxation on full elbow range of motion. ? I irrigated with normal saline and closure with 4-0 monocryl for dermis and subcuticular. The incisions were covered with Dermabond then 4x4s, kole, and a posterior elbow and volar wrist splint for patient safety, security and comfort and secured with alisa bandages after the tourniquet was let down noting the hand was warm and well perfused.? Patient awaken from anesthesia and transferred to recovery in stable condition Complications - none EBL- 1cc Disposition - home in stable conditions [facility] Billing Surgery - Charge Forward: Surgery Billing ([id number])
[2023-08-17] MEDS: LACTATED RINGERS 1,000 ML 30 ML IV CONT (06:55)
--- NOTE | 2023-08-17 07:45 | WPDANESEPPF ---
Anes - Initial Pre Proc Eval Procedure: Operation Date: 08/17/23 08:15 Proposed Procedures p Left Endoscopic Carpal Tunnel Release, Possible Open, Left Cubital Tunnel Release - Kodi Lara MD Date/Time: 08/17/23 07:45 Surgeon: Kodi Lara MD Pre Op Diagnosis: left carpal and cubital tunnel syndrome Patient Data Age: 67 Gender: M Height: 1.83 m Weight: 115.1 kg Last Vital Signs Temp 36.2 C L 08/17/23 06:35 Pulse 63 08/17/23 06:35 Resp 18 08/17/23 06:35 BP 113/79 08/17/23 06:35 Pulse Ox 98 08/17/23 06:35 O2 Del Method Room Air 08/17/23 06:35 Allergies Allergy/AdvReac Type Severity Reaction Status Date / Time No Known Allergies Allergy Unknown Verified 08/17/23 06:39 Home Medications Medication Instructions Recorded Confirmed Type krill oil 500 mg capsule 500 mg PO DAILY 12/01/21 08/17/23 History fnqpwyxemffb-fyv-ojyrz acid-vit 1 tablet PO DAILY 12/01/21 08/17/23 History K-lycop 400 mcg-20 mcg-370 mcg tablet (Men's 50 Plus Multivitamin) aspirin 325 mg tablet 325 mg PO QAM 11/18/22 08/17/23 History tramadol 50 mg tablet 50 mg PO Q6H PRN pain #20 tabs 04/26/23 08/17/23 Rx allopurinol 300 mg tablet 300 mg PO QAM #100 tabs 08/05/23 08/17/23 Rx amlodipine 10 mg tablet 10 mg PO QAM #100 tabs 08/05/23 08/17/23 Rx metoprolol succinate 25 mg 25 mg PO QAM #100 tabs 08/05/23 08/17/23 Rx tablet,extended release 24 hr triamterene 37.5 1 tablet PO QAM #100 tabs 08/05/23 08/17/23 Rx mg-hydrochlorothiazide 25 mg tablet duloxetine 30 mg capsule,delayed 60 mg PO QPM NEUROPATHY PAIN 08/08/23 08/17/23 History release Patient hx anesthesia problems: none Family hx anesthesia problems: none Results Review: All pre-operative results and documents have been reviewed as part of the pre-operative evaluation. PMFSH Past Medical History Medical History Dyslipidemia Essential (primary) hypertension History of heart attack silent - no intervention Obstructive sleep apnea (adult) (pediatric) Surgical History Surgical History H/O arthroscopy of knee H/O hernia repair H/O lumbosacral spine surgery History of appendectomy History of hip replacement S/P hip arthroscopy Family History Family History Mother Family history of cardiovascular disease Father Family history of malignant neoplasm of urinary bladder, Onset Age: 78 Social History Social History Smoking status: Never smoker Second hand tobacco smoke exposure: No Alcohol intake: never Substance use: never Substance use type: does not use Lack of Transportation: No Lack of Food: Never True Current Housing: I Have Housing Concerned About Future Housing: No Difficulty Paying Gas/Electric Bills: No Difficulty Paying for Meds: No Currently Unemployed: No Education: Trade/Vocational Certificate Difficulty w/ Childcare or Family Care: No Living arrangements: with family Additional living arrangements comments: Occupation/Education: retired Gender identity (if verbalized by the patient): Male Spiritual care concerns: No Agree to blood products: Yes Anes - Eval Final PreProcedure Day of Procedure 08/17/23 07:45 Patient weight: obese Heart: regular rate and rhythm Lungs: clear to auscultation Airway: Mallampati scale class II Neurological: alert and oriented Last oral intake: >/= 8 hours ASA classification: III Emergent: no Anesthetic plan: proceed Anesthesia type and monitoring: general GIVS and standard monitoring Results Review: All pre-operative results and documents have been reviewed as part of the pre-operative evaluation. Informed Consent: The patient's anesthetic plan and its attendant risks and benef
[2023-08-17] MEDS: LIDO 1%/EPINEPHRINE 1:100,000 50 ML VIAL 10 ML INFILTRATE (07:53)
[2023-08-17] MEDS: ceFAZolin 2 GM/D5W 50 ML 2 GM/50 ML BAG IVPB (08:03)
[2023-08-17 08:32] VITALS: BP 132/82; PULSE 69; RESP 12; O2SAT 97
[2023-08-17 09:00] VITALS: BP 130/79; PULSE 64; RESP 14; O2SAT 100
[2023-08-17 09:15] VITALS: BP 128/72; PULSE 56; RESP 14
== END 2023-08-17 09:30 | disposition home or self-care (01) ==
PROVIDERS: PCP Emergency Medicine; Visit Provider Plastic Surgery
PROC: 01N54ZZ Release Median Nerve, Percutaneous Endoscopic Approach (ICD-10-PCS; CPT 29848; principal; 2023-08-17 08:15)
DX: G56.02 Carpal tunnel syndrome, left upper limb (principal); G56.22 Lesion of ulnar nerve, left upper limb; I10 Essential (primary) hypertension; E78.5 Hyperlipidemia, unspecified; I25.2 Old myocardial infarction; G47.33 Obstructive sleep apnea (adult) (pediatric); Z79.82 Long term (current) use of aspirin
CPT/HCPCS: 29848; 64718; J0690; J2405; J3010; J7120

== ENCOUNTER 2023-09-21 12:20 | Outpatient (CLI) | payer MEDICARE, SELFPAY ==
--- NOTE | ~2023-09-21 | NM_ITS ---
EXAMINATION: FRANCESCO cramer renal scan DATE: 09/21/2023 15:47 INDICATION: Hydronephrosis. TECHNIQUE: 8.1 mCi Tc-99m MAG3 was administered IV. 40 mg furosemide was administered IV immediately afterward. The patient was scanned in the supine position. A posterior abdominal radionuclide angiog pari was obtained. A subsequent time course of static images of the kidneys, ureters, and bladder was obtained. COMPARISON: Renal scan 01/20/2023, CT abdomen and pelvis 11/18/2022 FINDINGS: The posterior abdominal radionuclide angiogram and sequential static images show severe lef t hydronephrosis. Peak renal parenchymal uptake was 3 min in right kidney and is not well measured in left kidney (normal peak 3-5 minutes). The relative early renal uptake was 65% on the right and 35% on the left (<40% is abnormal). T1/2 for clearance of activity from the right kidney and proximal collecting system was 10 minutes. T1/2 for clearance of activity from the left kidney and proximal collecting system was >>20 minutes. IMPRESSION: 1. Chronically decreased left kidney function, which is 35% of total renal function. 2. Severe left hydronephrosis. Note that this exam cannot differentiate between a fixed ureteral obst ruction and a dilated atonic collecting system after resolution of a fixed ureteral obstruction. Reviewed, dictated and finalized at location A. IMPRESSION: 1. Chronically decreased left kidney function, which is 35% of total renal fun ction. 2. Severe left hydronephrosis. Note that this exam cannot differentiate between a fixed ureteral obstruction and a dilated atonic collecting system after reso lution of a fixed ureteral obstruction.
== END 2023-09-21 12:21 | disposition home or self-care (01) ==
LOC: ANHIMG 12:25
PROVIDERS: PCP Emergency Medicine; Visit Provider Urology
DX: N13.30 Unspecified hydronephrosis (principal)
CPT/HCPCS: 78708; A9562

== ENCOUNTER 2023-10-19 09:43 | Outpatient (CLI) | payer MEDICARE, SELFPAY ==
[2023-10-19 21:26] LABS: Alanine Aminotransferase 22 U/L (6-50); Albumin Level 4.1 g/dL (3.5-5.1); Alkaline Phosphatase 78 U/L (38-126); Anion Gap 10 mmol/L (4-12); Aspartate Amino Transferase 26 U/L (17-59); Bilirubin,Total 0.5 mg/dL (0.2-1.3); Blood Urea Nitrogen 23 mg/dL (9-20); Calcium 8.9 mg/dL (8.4-10.2); Carbon Dioxide 30 mmol/L (22-30); Chloride 99 mmol/L (98-107); Cholesterol 199 mg/dL (0-200); Estimated Glomerular Filt Rate 55; Glucose 92 mg/dL (65-110); HDL Direct 38 mg/dL; Potassium 3.2 mmol/L (3.4-5.0); Sodium 139 mmol/L (137-145); Triglycerides 269 mg/dL (<150)
[2023-10-19 21:43] LABS: LDL Cholesterol Direct 119 mg/dL
== END 2023-10-19 09:44 | disposition home or self-care (01) ==
LOC: ANHGOSHLAB 09:44
PROVIDERS: PCP Emergency Medicine; Visit Provider Emergency Medicine
DX: E78.5 Hyperlipidemia, unspecified (principal); I10 Essential (primary) hypertension
CPT/HCPCS: 36415; 80053; 80061

== ENCOUNTER 2024-05-02 12:20 | Outpatient (CLI) | payer MEDICARE, SELFPAY ==
--- NOTE | ~2024-05-02 | NM_ITS ---
EXAMINATION: FRANCESCO cramer renal scan DATE: 05/02/2024 14:11 INDICATION: Hydronephrosis TECHNIQUE: 8.2 mCi Tc-99m MAG3 was administered IV. 40 mg furosemide was administered IV immediately afterward. The patient was scanned in the supine position. A posterior abdominal radionuclide angiog pari was obtained. A subsequent time course of static images of the kidneys, ureters, and bladder was obtained. COMPARISON: None FINDINGS: The posterior abdominal radionuclide angiogram and sequential static images show normal size and posi tion of the kidneys. Normal morphology to the right kidney. There is a central photopenic defect at t he and left renal hilum on the earliest angiographic images which fills in with activity on the delay ed imaging consistent with hydronephrosis. Peak renal parenchymal uptake was 23.5 min in left kidney and 3.5 min in right kidney (normal peak 3-5 minutes). The relative early renal uptake was 28% on th e left and 72% on the right (<40% is abnormal). No abnormalities of the ureters or bladder are seen. T1/2 for clearance of activity from the left kidney and proximal collecting system was >>30 minutes w ith continually rising renal activity curve throughout the 30 minutes of imaging. T1/2 for clearance of activity from the right kidney and proximal collecting system was 14 minutes. Notes on interpretation: T1/2 <10 minutes is normal, 10-15 minutes is low grade obstruction of questi onable clinical significance, 15-20 minutes is partial obstruction that is likely clinically signific ant, >20 minutes is high grade obstruction. Note that false positives may be seen with supine positio jose cruz, dehydration, severely dilated nonobstructed kidney, atonic collecting system, poor renal functi on, and chronic furosemide use. IMPRESSION: 1. Progressive worsening of chronic decreased left renal function which appears to contribute 35%, c urrently 28% to total renal function. 2. Persistent left hydronephrosis with markedly delayed T 1/2 of activity clearance which can be see n with high high-grade obstruction, poor renal function, dilated atonic collecting system or some com bination thereof. Reviewed, dictated and finalized at location A. IMPRESSION: 1. Progressive worsening of chronic decreased left renal function which appear s to contribute 35%, currently 28% to total renal function. 2. Persistent left hydronephrosis with markedly delayed T 1/2 of activity nadine park which can be seen with high high-grade obstruction, poor renal function, dilated atonic collecting system or some combination thereof.
--- OUTSIDE RECORDS SUMMARY | 2024-05-02 13:49 | XMS_ITS | Clinical Summary ---
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 Gender Identity Not on file Sexual Orientation Not on file Plan of Treatment Health Maintenance Due Date Last Done Comments Colorectal Cancer Screening Colonoscopy (10 Years) 1955 Hepatitis C 12/22/1971 DTaP, Tdap and Td Vaccines ( 1 - Tdap) 1972 Zoster Vaccines (1 of 2) 12/22/2003 Annual Medicare Wellness Visit 2018 COVID-19 Vaccine (3 - 2023-2 5 season) 2023 05/23/2020, 04/29/2020 Influenza Adult (#1) 2023 01/06/2021, 01/16/2020 RSV Immunization or 60+ Years (1 - 1-dose 75+ series) 2028 Pneumococcal Vaccine: 65+ Years Completed 01/06/2021, 08/08/2019 Meningococcal B Vaccine Aged Out No l onger eligible based on patient's age to complete this topic Meningococcal Vaccine Aged Out No linh basil eligible based on patient's age to complete this topic RSV Immunizations Under 20 Months Aged Out No longer eligible b ased on patient's age to complete this topic Insurance Care Teams Trucking Contractor Relationship Specialty Start Date End Date Tino Clarke PA [address] [facility] [address] [place] [address] PCP - General PHYSICIAN LEATHER SKINNER 12/20/22
--- OUTSIDE RECORDS SUMMARY | 2024-05-02 13:49 | XMS_ITS | Continuity of Care Document ---
Author Organization [facility] Address [address] [place] [address] Phone Care Team Providers Care Dispatcher Motor Vehicle Name Role Phone Juan Francisco De León MD Unavailable Unavailable Advance Directives Directive Yes / No Effective Date File Name No Information Encounters Encounter Description Practice Location Reason(s) For Visit Diagnoses Date Provider Providers Copied on Encounter [facility], [address], [place], [place], [id number], [place] tel:[phone] [facility] No Information Sarthak Chicas. [address] , [place], [place], [id number], [place]. tel:[phone] Referring Provider: Missael Murillo DO, [address], [place], [address]. tel:[phone] Family History Family Member Type Diagnosis Age At Onset No Information Payers Payer name Insurance type Covered green party ID Authoriza tion(s) [facility] CI [id number] Social History Type Description Quantity Date Captured Comments Sex Male Smoking Status No Information Chief Complaint And Reason For Visit No Information Reason For Referral Reason For Referral No Information History Of Present Illness Encounter Date Complaint History Of Prese nt Illness No Information Functional Status Date Functional Assessmen t No Information Instructions Date Instruction Additional Infor mation No Information Assessments Type Assessment Date No Information Patient Care Teams Name Effective Dates (start - stop) Status Members No Information
== END 2024-05-02 12:21 | disposition home or self-care (01) ==
PROVIDERS: PCP Nurse Practitioner Family; Visit Provider Urology
DX: N13.30 Unspecified hydronephrosis (principal)
CPT/HCPCS: 78708; A9562

== ENCOUNTER 2024-12-17 13:22 | Outpatient (CLI) | payer MEDICARE, SELFPAY ==
--- NOTE | ~2024-12-17 | NM_ITS ---
EXAMINATION: FRANCESCO Hurley renal scan DATE: 12/17/2024 17:40 [employer] [facility] INDICATION: Left hydronephrosis TECHNIQUE: 8.2 mCi Tc-99m MAG3 was administered IV. 40 mg furosemide was administered IV immediately afterward. The patient was scanned in the upright/supine position. A posterior abdominal radionuclide angiogram was obtained. A subsequent time course of static images of the kidneys, ureters, and bladder was obtained. COMPARISON: None FINDINGS: The posterior abdominal radionuclide angiogram and sequential static images show normal size, position, and morphology of the kidneys. Peak renal parenchymal uptake was 4.45 min in right kidney and 29.5 min in left kidney (normal peak 3-5 minutes). The relative early renal uptake was 69% on the right and 31% on the left (<40% is abnormal). No abnormalities of the ureters or bladder are seen. T1/2 for clearance of activity from the right kidney and proximal collecting system was 4.45 minutes. T1/2 for clearance of activity from the left kidney and proximal collecting system was 29.45 minutes. Notes on interpretation: T1/2 <10 minutes is normal, 10-15 minutes is low grade obstruction of questionable clinical significance, 15-20 minutes is partial obstruction that is likely clinically significant, >20 minutes is high grade obstruction. Note that false positives may be seen with supine positioning, dehydration, severely dilated nonobstructed kidney, atonic collecting stystem, poor renal function, and chronic furosemide use. IMPRESSION: 1. Persistent chronic decreased left renal function contributing to 31% total renal function. 2. Persistent left hydronephrosis with delayed T1 half activity which can be seen with high-grade obstruction, poor renal function and/or dilated atonic collecting system. Reviewed, dictated and finalized at location O. [facility] IMPRESSION: 1. Persistent chronic decreased left renal function contributing to 31% total renal function. 2. Persistent left hydronephrosis with delayed T1 half activity which can be s een with high-grade obstruction, poor renal function and/or dilated atonic effie ecting system.
== END 2024-12-17 13:23 | disposition home or self-care (01) ==
PROVIDERS: PCP Nurse Practitioner Family; Visit Provider Nurse Practitioner Family
DX: N13.39 Other hydronephrosis (principal)
CPT/HCPCS: 78708; A9562; J1938